=== PATIENT | female | born 1970 | race Caucasian/White ===

== ENCOUNTER 2019-08-17 07:00 | Outpatient (CLI) | payer OTHER, SELFPAY ==
[2019-08-17 11:40] LABS: ALT 49 U/L (14-59); AST 17 U/L (15-37); Albumin 3.7 g/dL (3.4-5.0); Alkaline Phosphatase 111 U/L (46-116); Anion Gap 11.9 mmol/L (3-11); BUN 35 mg/dL (7-18); Bilirubin, Total 0.4 mg/dL (0.2-1.0); CO2 26.1 mmol/L (21.0-32.0); Calculated LDL 135 mg/dL; Chloride 103 mmol/L (98-107); Cholesterol 201 mg/dL (50-200); Estimated GFR 47.75 (mL/min/1.73m2); Glucose 104 mg/dL (70-100); HDL Cholesterol 43 mg/dL (40-60); Potassium 4.6 mmol/L (3.5-5.1); Sodium 141 mmol/L (136-145); TSH 5.71 uIU/mL (0.36-3.74); Total Protein 7.6 g/dL (6.4-8.2); Triglyceride 115 mg/dL (30-150)
[2019-08-17 11:46] LABS: Hemoglobin A1C 5.4 % (4.5-6.2)
[2019-08-17 11:57] LABS: ESR 37 mm/hr (0-20)
[2019-08-17 12:07] LABS: FREE T4 1.09 ng/dL (0.76-1.46)
[2019-08-18 10:03] LABS: Rheumatoid Factor 8 IU/mL (<12.5)
== END 2019-08-17 07:20 ==
PROVIDERS: PCP Nurse Practitioner Family; Visit Provider Nurse Practitioner Family
DX: E03.9 Hypothyroidism, unspecified (principal); E78.5 Hyperlipidemia, unspecified
CPT/HCPCS: 36415; 80053; 80061; 85652; 83036; 84439; 84443; 86431

== ENCOUNTER 2019-08-23 06:49 | Outpatient (CLI) | payer OTHER, SELFPAY ==
[2019-08-23 13:23] LABS: Bilirubin Negative (Negative); Blood Negative (Negative); Clarity Clear (Clear); Glucose Negative (Negative); Ketones Negative (Negative); Leukocyte Esterase Negative (Negative); Nitrite Negative (Negative); Specific Gravity 1.015 (1.005-1.025); Urobilinogen 0.2 EU/dL (Up TO 0.2)
[2019-08-23 13:50] LABS: COMMENT (LAB VIEW ONLY) 104.81 mg/dL; Microalb ug/mg Crea 8.5 ug/mg Cr
[2019-08-23 14:02] LABS: Anion Gap 9.2 mmol/L (3-11); BUN 20 mg/dL (7-18); CO2 28.8 mmol/L (21.0-32.0); CREATININE 1.01 mg/dL (0.55-1.02); Chloride 103 mmol/L (98-107); Estimated GFR 58.26 (mL/min/1.73m2); Glucose 103 mg/dL (70-100); Potassium 4.8 mmol/L (3.5-5.1); Sodium 141 mmol/L (136-145)
== END 2019-08-23 07:09 ==
PROVIDERS: PCP Nurse Practitioner Family; Visit Provider Nurse Practitioner Family
DX: I10 Essential (primary) hypertension (principal)
CPT/HCPCS: 36415; 80048; 81003; 82043; 82570

== ENCOUNTER 2020-02-26 17:33 | Emergency (ER) | payer OTHER, SELFPAY ==
[2020-02-26 17:28] VITALS: BP 142/71; PULSE 105; RESP 22; TEMP 37; O2SAT 93
--- NOTE | 2020-02-26 17:30 | DI.RAD_ITS ---
EXAM: XR KNEE LT 4V AP,LAT,SHANNON,PAT and XR tib/fib left CLINICAL HISTORY: fall, lateral pain. TECHNIQUE: 2D digital imaging was performed. COMPARISON: No previous for comparison. FINDINGS: BONES: There is a comminuted depressed lateral tibial plateau fracture. No other fracture is identi fied. JOINTS: There are mild degenerative changes seen about the knee particularly the patellofemoral joint . There is a joint effusion present. SOFT TISSUE: Normal. IMPRESSION: Comminuted depressed lateral tibial plateau fracture. DATA REPOSITORY: RADIATION DOSE DELIVERED:
--- NOTE | 2020-02-26 17:31 | W.ED.GENAD ---
Discharge Plan Disposition Patient Disposition: HOME Condition: Fair Discharge Details Chief Complaint: Orthopedic Clinical Impression: Fracture, tibial plateau Primary Care Provider: Germania Hodge ED Provider: Dorina Ji Home Meds and New Rx's Prescriptions: New oxycodone 5 mg tablet 5 mg PO Q6H PRN (Reason: pain) Qty: 7 RF: 0 Continued black cohosh 20 mg tablet 20 mg PO DAILY RF: 0 multivitamin tablet 1 tab PO DAILY RF: 0 furosemide 40 mg tablet 60 mg PO DAILY Qty: 145 RF: 4 lisinopril 30 mg tablet 30 mg PO DAILY Qty: 90 RF: 4 levothyroxine 150 mcg tablet 150 mcg PO DAILY Qty: 90 RF: 4 paroxetine HCl 30 mg tablet 30 mg PO DAILY Qty: 90 RF: 4 Discharge Instructions Instructions: Oxycodone, Rapid Release (By mouth), Leg Fracture (ED) Additional Instructions: Encourage rest, ice, elevation. Tylenol and/or ibuprofen as needed for discomfort. If this is unsuccessful relieving her discomfort, you may use the oxycodone as prescribed. Please take this medication only as prescribed do not drive will take this medicine. Please call orthopedics tomorrow to schedule follow-up appointment, number listed below. Please use crutches and remain nonweightbearing on that side. If you develop new or worsening symptoms please seek care urgently once again. Stand Alone Forms: Work Release Referrals: Nirav Tian MD [ [facility] STAFF PHYSICIAN] - Medical Decision Making Patient is 49 year old female, brought in via EMS, with c/c of left knee pain. She states that for safety reasons she always goes down stairs backward. Today, she caught her flip flop on the stair and fell. States that she landed on her right knee/hip but endorses left knee pain. She denies history of fx or surgery to this extremity. Denies numbness/tingling. No opening of the skin. She denies other injury at the time of the incident. Did not strike her head, no LOC, CP, SOB, neck or back pain. Patient believes that she pulled the left knee and is endorsing pain along the fibular head radiating inferiorly to mid calf. No posterior pain. Patient has been nonambulatory since the incident. On exam, patient appears uncomfortable. She is notably morbidly obese. She has no outward evidence of trauma. She has 2+ distal pulses and brisk capillary refill. Sensation is intact. Plan for x-ray to evaluate for fracture. Will give Tylenol and ibuprofen for discomfort. XR reviewed by radiologist: FINDINGS: Bones/joints: Abnormal appearing lateral tibial plateau. Underlying fracture is suspected. Consider CT. Soft tissues: Normal. IMPRESSION: Abnormal appearing lateral tibial plateau. Underlying fracture is suspected. Consider CT. FINDINGS: Bones/joints: Lateral tibial plateau fracture suspected, nondisplaced. Confirm with CT if clinically relevant. Soft tissues: Diffuse soft tissue edema. IMPRESSION: Diffuse soft tissue edema. Lateral tibial plateau fracture suspected, nondisplaced. Confirm with CT if clinically relevant. CT reviewed by radiologist FINDINGS: Bones/joints: Acute fracture in the lateral tibial plateau with 6 mm depression of the articular surface. Small to moderate joint effusion with fat fluid level. Soft tissues: Subcutaneous mild soft tissue edema. IMPRESSION: Acute fracture in the lateral tibial plateau with 6 mm depression of the articular surface. Small to moderate joint effusion with fat fluid level. Subcutaneous mild soft tissue edema. Consulted with Dr. Garcia. Will place the patient in a knee immobilizer and have her be nonweightbearing on crutches. Secondary to the patient's body habitus, not having bracing for the patient. Instead, a posterior slab splint will be applied. Double layer will be made given the patient's body habitus. Patient will be given bariatric patches. Attempted to splint the patient, she was unable to tolerate this. Will give IM Dilaudid to help with discomfort to allow for more comfortable splinting. Posterior slab splint was able to be applied. Knee was left in partial flexion. Patient tolerated this well and did have good relief of her discomfort once the splint was in place. Nurses have attempted to ambulate the patient with the bariatric crutches. She was having great difficulty being able to ambulate by herself and get from the bed to a standing position. Much of this seems to be weight-based. I advised admission to be able to work with physical therapy further tomorrow and help with ambulation. I am particularly worried that the patient has 4 steps to be able to get into her house from the outside. Patient is adamant that she wants to go home and be able to care for her daughter. She advised that her son-in-law will be able to help her get into the house. I am concerned for his safety given the patient's body habitus. I did express this concern to the patient. We were able to arrange for EMS assistance at the house to help alleviate some of the load off of her son-in-law. I advised her that if she does have difficulty getting to the house, she should return to the ED for admission rather than but there is risk. Patient was given return precaution. She will call orthopedics tomorrow. Patient will be discharged with #4 oxycodone. Usage instructions was discussed with the patient. We did discuss nonopiate options to help with her discomfort. Encourage rest, ice, elevation. All of her questions and concerns were addressed and she is in agreement with this plan. HPI General Mode of arrival: EMS. Date/Time Provider Initiated Documentation: 02/26/20 17:56. Limitations to Documentation: no limitations. Information obtained by: patient, EMS and RN notes reviewed. History of Present Illness 49 year old F presents to the emergency department with the chief complaint of left knee pain, described as moderate, with intensity rated at 7. Quality is described as aching, and is localized to the left and lower extremity. Patient reports no radiation. Patient started experiencing this minute(s) and it has been constant. Immobilization improves symptom(s), Movement worsens symptoms . Patient notes no other symptoms.. Patient did receive the following treatments prior to arrival, none Related Data Home Medications Medication Instructions Recorded Confirmed black cohosh 20 mg tablet 20 mg PO DAILY 06/15/18 02/26/20 multivitamin 1 tab PO DAILY 06/15/18 02/26/20 furosemide 40 mg tablet 60 mg PO DAILY #145 tab 09/20/19 02/26/20 levothyroxine 150 mcg tablet 150 mcg PO DAILY #90 tab 09/20/19 02/26/20 lisinopril 30 mg tablet 30 mg PO DAILY #90 tab 09/20/19 02/26/20 paroxetine HCl 30 mg tablet 30 mg PO DAILY #90 tab 12/28/19 02/26/20 oxycodone 5 mg PO Q6H PRN #7 tab 02/26/20 Previous Rx's Medication Instructions Recorded furosemide 40 mg tablet 60 mg PO DAILY #145 tab 09/20/19 levothyroxine 150 mcg tablet 150 mcg PO DAILY #90 tab 09/20/19 lisinopril 30 mg tablet 30 mg PO DAILY #90 tab 09/20/19 paroxetine HCl 30 mg tablet 30 mg PO DAILY #90 tab 12/28/19 oxycodone 5 mg PO Q6H PRN #7 tab 02/26/20 Allergies Allergy/AdvReac Type Severity Reaction Status Date / Time No Known Allergies Allergy Unverified 02/26/20 17:31 Review of Systems Constitutional Constitutional: Reports as per HPI, Denies chills, Denies fever(s), Denies headache(s) and Denies weakness ENT Ears, Nose, Mouth, and Throat: Denies headache(s) Cardiovascular Cardiovascular: Reports as per HPI Respiratory Respiratory: Reports as per HPI and Denies cough Musculoskeletal Musculoskeletal: Reports as per HPI and Denies tingling Integumentary/Breasts Skin/Breast: Reports as per HPI, Denies rash and Denies wounds Neurologic Neurologic: Reports as per HPI, Denies headache(s), Denies tingling, Denies paresthesias and Denies weakness [facility] Medical History Anterior uveitis (Resolved) Bilateral in 2005 Essential hypertension (Chronic) Generalized anxiety disorder (Chronic) Hyperlipidemia (Chronic) Hypothyroidism (Chronic) Lichen sclerosus et atrophicus (Inactive) Major depressive disorder (Chronic) Obesity (Chronic) Vitiligo (Chronic) Surgical History History of section (Chronic 08/31/06) S/P dilatation and curettage (Acute 07/31/09) S/P LEEP (Acute ~1995) Status post de Quervain's release surgery (Acute 08/22/08) Left wrist Social History Smoking/Tobacco Use Status: Never Alcohol Intake: current Alcohol Intake frequency: holidays/special occasions only Substance use type: does not use Caregiver/Support person: No Household members: children Communication Needs: None 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 Pets and animals: Yes Pets and animals: cat(s) Sexually active: No Do you think of yourself as: straight/heterosexual Current gender identity: female What is your relationship status?: How often do you talk on the phone with friends or family?: three or more times per week How often do you get together with friends or relatives?: twice per week How often do you attend restorationism or baptist services?: decline to answer Do you belong to any clubs or organized social groups?: no Panel score (0-1 are the most socially isolated patients): 1 What type of physical activity do you participate in: walking Duration: < 15 minutes/day Frequency: daily Enma/Yazdanism: None Special enma needs: No Seatbelt use: always Helmet use: Yes Helmet use: always Drive intox or ride w/intox pizza driver: No Do you feel safe at home: Yes Do you feel safe in your relationship?: Yes Female Reproductive History Menstrual control method: natural family planning History History 3 Para 1 Hx # Term Pregnancies Multiple births Hx # Pregnancies Ectopic pregnancies AB induced Hx Number of Living Children 1 AB spontaneous 2 Exam Const General: cooperative, healthy appearing, uncomfortable, no acute distress, well developed and well groomed Nutritional Appearance: well nourished and obese morbidly obese Orientation: alert and awake Resp Effort & Inspection: normal respiratory effort, able to speak in complete sentences and no respiratory distress Cardio Rate: regular rate Rhythm: regular rhythm Skin General skin exam: no rashes or lesions noted Lesions: no lesions Rashes: no rashes Trauma: no lacerations or abrasions Neuro General: patient alert and patient awake Cognition: normal cognition Speech: speech normal Gait: gait abnormal (nonambulatory since [facility] [place]) Sensory Exam: no sensory deficits noted Extrem Left lower extremity: normal to inspection, normal capillary refill, no joint enlargement and knee Details: normal to inspection and tenderness Location: of the tibial tuberosity and of the lateral joint line; no swelling (difficult to assess secondary to body habitus); abnormal ROM (unable to range knee secondary ot pain) and no edema Psych Appearance: grossly normal and well kempt Mental Status: mental status grossly normal Speech and Movement: speech and movement normal
[2020-02-26] MEDS: Ibuprofen 600 MG TAB PO (17:41)
[2020-02-26] MEDS: Acetaminophen 500 MG TAB 1000 MG PO (17:41)
--- NOTE | 2020-02-26 18:07 | DI.VRAD_ITS ---
PROCEDURE INFORMATION: Exam: XR Left Knee Exam date and time: 02/26/2020 5:50 PM Age: 49 years old Clinical indication: Pain and injury or trauma; Initial encounter; Blunt trauma; Left; Knee and lower leg; Patient HX: Fall, lateral pain TECHNIQUE: Imaging protocol: XR Left knee. Views: 4 or more views. COMPARISON: No relevant prior studies available. FINDINGS: Bones/joints: Abnormal appearing lateral tibial plateau. Underlying fracture is suspected. Consider CT. Soft tissues: Normal. IMPRESSION: Abnormal appearing lateral tibial plateau. Underlying fracture is suspected. Consider CT. Dictated and Authenticated by: Fausto Ervin MD. Ordering:GABRIELLA Cam MD
--- NOTE | 2020-02-26 18:08 | DI.VRAD_ITS ---
PROCEDURE INFORMATION: Exam: XR Left Tibia and Fibula Exam date and time: 02/26/2020 5:59 PM Age: 49 years old Clinical indication: Pain and injury or trauma; Initial encounter; Blunt trauma; Knee and lower leg; Left; Patient HX: Fall, lateral pain TECHNIQUE: Imaging protocol: XR Left tibia and fibula. Views: 2 views. COMPARISON: CR XR KNEE LT 4V AP,LAT,SHANNON,PAT 02/26/2020 5:50 PM FINDINGS: Bones/joints: Lateral tibial plateau fracture suspected, nondisplaced. Confirm with CT if clinically relevant. Soft tissues: Diffuse soft tissue edema. IMPRESSION: Diffuse soft tissue edema. Lateral tibial plateau fracture suspected, nondisplaced. Confirm with CT if clinically relevant. Dictated and Authenticated by: Fausto Ervin MD. Ordering:GABRIELLA Cam MD
--- NOTE | 2020-02-26 18:30 | DI.CT_ITS ---
EXAM: CT LOWER EXTREMITY LT WO CLINICAL HISTORY: concern for tibial plateau fracture. TECHNIQUE: Imaging Protocol: Axial computed tomography images with coronal and sagittal reformatted images were created and reviewed. COMPARISON: No exams were available for comparison FINDINGS: Bones: There is a comminuted lateral tibial plateau fracture. The fracture extends medially to invo lve the lateral tibial spine. There is depression of approximately 8 mm. No other fracture is ident ified. There is a joint effusion present with a fat fluid level. Degenerative changes are seen in t he knee particularly involving the patellofemoral joint. Soft Tissues: Normal. IMPRESSION: Comminuted lateral tibial plateau fracture as described above. RADIATION DOSE DELIVERED: 237.63mGy.cm Total DLP 237.63mGy.cm Total DLP DATA REPOSITORY: All CT scans at this facility are submitted to the National Radiology Data Registry (NRDR) Dose Index Registry (DIR) with the [employer] ([employer]). RADIATION OPTIMIZATION: All CT scans at this facility use at least one of these dose optimization te chniques: automated exposure control; mA and/or kV adjustment per patient size (includes targeted exa ms where dose is matched to clinical indication); or iterative reconstruction.
--- NOTE | 2020-02-26 18:57 | DI.VRAD_ITS ---
PROCEDURE INFORMATION: Exam: CT Left Lower Extremity With Contrast, Knee Exam date and time: 02/26/2020 6:32 PM Age: 49 years old Clinical indication: Pain; Knee; Left; Patient HX: Concern for tibial plateau FX TECHNIQUE: Imaging protocol: CT of the Left lower extremity with intravenous contrast was performed. Exam focused on the knee. COMPARISON: CR XR KNEE LT 4V AP,LAT,SHANNON,PAT 02/26/2020 5:50 PM FINDINGS: Bones/joints: Acute fracture in the lateral tibial plateau with 6 mm depression of the articular surface. Small to moderate joint effusion with fat fluid level. Soft tissues: Subcutaneous mild soft tissue edema. IMPRESSION: Acute fracture in the lateral tibial plateau with 6 mm depression of the articular surface. Small to moderate joint effusion with fat fluid level. Subcutaneous mild soft tissue edema. Dictated and Authenticated by: Fausto Ervin MD. Ordering:GABRIELLA Cam MD
[2020-02-26 19:03] VITALS: BP 136/83; PULSE 95; RESP 18; TEMP 37.1; O2SAT 100
[2020-02-26] MEDS: HYDROmorphone 2 MG/ML VIAL 1 MG IM (19:52)
[2020-02-26 21:23] VITALS: BP 142/71; PULSE 105; RESP 18; TEMP 37.1; O2SAT 100
--- NOTE | 2020-02-26 21:26 | NUR.NOTE ---
Nursing Note: Patient had severe difficulty with mobility. Unable to even stand due to body habitus. Patient insisted upon going home even though PA offered to admit for observation for PT tomm on crutch or walker use. Patient insisted on going home due to having to care for her 13 year old daughter. Patient required extensive assist to get into wheelchair. Unable to understand or use crutches appropriately. Requires to stand by pulling self up on this scribe. Called son in law for help to take home. Son in law parked up to ER entrance with his large SUV. Patient unable to even stand from wheelchair and EMS arrived to assist with getting into vehicle. Patient totally unable to get into the vehicle and required her son in law, 2 EMS and this scribe to physically lift her into the seat. EMS or fire to meet patient at home to assist into home as she has 3-4 steps to get into house. Reminded patient that she could come back should she find she is unable to care for herself at home.
--- NOTE | 2020-02-27 08:13 | NUR.NOTE ---
02/27/2020 @0813 Orthopedic referral faxed to [facility] Nursing Note:
== END 2020-02-26 21:05 | disposition home or self-care (01) ==
LOC: ER 21:06
PROVIDERS: Emergency Provider Physician Assistant; PCP Nurse Practitioner Family
DX: S82.142A Displaced bicondylar fracture of left tibia, initial encounter for closed fracture (principal); W10.8XXA Fall (on) (from) other stairs and steps, initial encounter; E66.01 Morbid (severe) obesity due to excess calories; Z68.44 Body mass index [BMI] 60.0-69.9, adult; I10 Essential (primary) hypertension
CPT/HCPCS: 29505; 96372; 99284; 73564; 73590; 73700; E0114

== ENCOUNTER 2020-02-27 16:02 | Observation (INO) | payer OTHER, SELFPAY ==
[2020-02-27 16:03] VITALS: BP 151/88; PULSE 106; TEMP 36.5; O2SAT 90
[2020-02-27] MEDS: oxyCODONE 5 MG TAB PO ×2 (16:59→23:14)
--- NOTE | 2020-02-27 17:29 | W.ED.GENAD ---
Discharge Plan Disposition Patient Disposition: [facility] INPATIENT Condition: Stable Discharge Details Chief Complaint: Orthopedic Clinical Impression: Closed fracture of left tibial plateau, Inability to ambulate due to left knee Primary Care Provider: Germania Hodge ED Provider: Giorgio Gudino Home Meds and New Rx's Prescriptions: No Action black cohosh 20 mg tablet 20 mg PO DAILY RF: 0 multivitamin tablet 1 tab PO DAILY RF: 0 furosemide 40 mg tablet 60 mg PO DAILY Qty: 145 RF: 4 lisinopril 30 mg tablet 30 mg PO DAILY Qty: 90 RF: 4 levothyroxine 150 mcg tablet 150 mcg PO DAILY Qty: 90 RF: 4 paroxetine HCl 30 mg tablet 30 mg PO DAILY Qty: 90 RF: 4 oxycodone 5 mg tablet 5 mg PO Q6H PRN (Reason: pain) Qty: 7 RF: 0 Medical Decision Making 49-year-old female seen here yesterday and diagnosed with left tibial plateau fracture, returns with pain and inability to perform ADLs. I called and spoke with [facility] [place] on-call orthopedics, Dr. Caro and discussed history and ED presentation, he recommends outpatient follow-up with orthopedics and will be happy to care for patient in the outpatient setting he does not feel emergent transfer warranted. Plan to admit here for assistance with ADLs and pain control. Offered IV analgesia and patient declined. She prefer oral analgesics. I did give oxycodone 5 mg. She has not yet due for ibuprofen and Tylenol as she had this earlier this afternoon. I called and spoke with Dr. Tian will be happy to see the patient in consultation. Patient will likely need re-splinting and he will evaluate since. I called and spoke with on-call hospitalist Dr. Walsh who will admit the patient. HPI General Mode of arrival: ambulatory. Date/Time Provider Initiated Documentation: 02/27/20 16:31. Limitations to Documentation: no limitations. Information obtained by: patient. HPI Narrative: 49-year-old female presents with right knee pain. Patient tripped and fell down 2 steps yesterday. She was seen here in the emergency department and found to have a tibial plateau fracture. It was recommended by treatment team for her to be admitted for assistance with ADLs. Patient provided informed refusal of admission and was discharged home. Unfortunately she is not been doing well at home and was advised by PCP care management to come back to the emergency department for reassessment. Patient is having significant difficulty with ADLs. She cannot ambulate and is having trouble with crutches likely related to her comorbid obesity. Pain is severe. She has been using Tylenol, ibuprofen and oxycodone. Oxycodone does provide some relief but is only temporizing measure. No associated numbness or tingling in the distal lower leg. No other injury. Related Data Home Medications Medication Instructions Recorded Confirmed black cohosh 20 mg tablet 20 mg PO DAILY 06/15/18 02/26/20 multivitamin 1 tab PO DAILY 06/15/18 02/26/20 furosemide 40 mg tablet 60 mg PO DAILY #145 tab 09/20/19 02/26/20 levothyroxine 150 mcg tablet 150 mcg PO DAILY #90 tab 09/20/19 02/26/20 lisinopril 30 mg tablet 30 mg PO DAILY #90 tab 09/20/19 02/26/20 paroxetine HCl 30 mg tablet 30 mg PO DAILY #90 tab 12/28/19 02/26/20 oxycodone 5 mg PO Q6H PRN #7 tab 02/26/20 Previous Rx's Medication Instructions Recorded furosemide 40 mg tablet 60 mg PO DAILY #145 tab 09/20/19 levothyroxine 150 mcg tablet 150 mcg PO DAILY #90 tab 09/20/19 lisinopril 30 mg tablet 30 mg PO DAILY #90 tab 09/20/19 paroxetine HCl 30 mg tablet 30 mg PO DAILY #90 tab 12/28/19 oxycodone 5 mg PO Q6H PRN #7 tab 02/26/20 Allergies Allergy/AdvReac Type Severity Reaction Status Date / Time No Known Allergies Allergy Unverified 02/26/20 17:31 General Stated Complaint: Orthopedic COCO: 3 Review of Systems Cardiovascular Cardiovascular: Denies chest pain and Denies dyspnea Respiratory Respiratory: Denies cough and Denies dyspnea Gastrointestinal Gastrointestinal: Denies abdominal pain Musculoskeletal Musculoskeletal: Reports as per HPI Neurologic Neurologic: Reports as per HPI [facility] Medical History Anterior uveitis (Resolved) Bilateral in 2005 Essential hypertension (Chronic) Generalized anxiety disorder (Chronic) Hyperlipidemia (Chronic) Hypothyroidism (Chronic) Lichen sclerosus et atrophicus (Inactive) Major depressive disorder (Chronic) Obesity (Chronic) Vitiligo (Chronic) Surgical History History of section (Chronic 08/31/06) S/P dilatation and curettage (Acute 07/31/09) S/P LEEP (Acute ~1995) Status post de Quervain's release surgery (Acute 08/22/08) Left wrist Family History Mother , At 39 of breast cancer Breast cancer Father Heart disease Hyperlipidemia Type 2 diabetes mellitus Hypertension Myocardial infarction Sister Hypothyroidism Daughter Type 1 diabetes mellitus Maternal Grandfather , at 50 of [place] Heart disease Myocardial infarction Maternal Grandmother , at 82 Dementia Paternal Grandfather , at 50 of [place] Heart disease Myocardial infarction Paternal Grandmother , at 82 Heart disease Hyperlipidemia Stroke Social History Smoking/Tobacco Use Status: Never Alcohol Intake: current Alcohol Intake frequency: holidays/special occasions only Drug use: Never Substance use type: does not use Caregiver/Support person: No Household members: children Communication Needs: None current occupation: [employer] Pets and animals: Yes Pets and animals: cat(s) Sexually active: No Do you think of yourself as: straight/heterosexual Current gender identity: female What is your relationship status?: How often do you talk on the phone with friends or family?: three or more times per week How often do you get together with friends or relatives?: twice per week How often do you attend jainism or catholic services?: decline to answer Do you belong to any clubs or organized social groups?: no Panel score (0-1 are the most socially isolated patients): 1 What type of physical activity do you participate in: walking Duration: < 15 minutes/day Frequency: daily Enma/Hindu: None Special enma needs: No Seatbelt use: always Helmet use: Yes Helmet use: always 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 Do you feel safe at home: Yes Do you feel safe in your relationship?: Yes Female Reproductive History Menstrual control method: natural family planning History History 3 Para 1 Hx # Term Pregnancies Multiple births Hx # Pregnancies Ectopic pregnancies AB induced Hx Number of Living Children 1 AB spontaneous 2 Exam Const General: cooperative and uncomfortable Nutritional Appearance: obese HENNJ Mouth: moist mucous membranes Resp Auscultation: clear to auscultation bilaterally, no rales, no rhonchi and no wheezes Cardio Rate: regular rate and not tachycardic Rhythm: regular rhythm Pulses: dorsalis pedis present on the left 1+ GI Palpation: soft, not firm, no guarding, no masses, not rigid and nontender Neuro General: patient alert, patient awake and tone normal Extrem General: no edema Left lower extremity: knee Details: tenderness, swelling and abnormal ROM (Posterior splint in place), lower leg (Compartments soft) and foot (Sensation intact, motor intact) Course Vital Signs Vital signs: Vital Signs Temperature 36.5 C 02/27/20 16:03 Pulse 106 H 02/27/20 16:03 Blood Pressure 151/88 H 02/27/20 16:03 Pulse Oximetry 90 L 02/27/20 16:03 Temperature 36.5 C 02/27/20 16:03 Temperature Source Temporal Artery Scan 02/27/20 16:03 Pulse 106 H 02/27/20 16:03 Respiratory Effort Non-Labored 02/27/20 17:21 Blood Pressure 151/88 H 02/27/20 16:03 Blood Pressure Position Sitting 02/27/20 16:03 Pulse Oximetry 90 L 02/27/20 16:03 Oxygen Delivery Method Room Air 02/27/20 16:03 Oxygen Flow Rate 0 02/27/20 16:03 Pain Level 6 02/27/20 16:03 Lab/Test Results Lab/Test Results: Laboratory Tests Range/Units 02/27/20 18:31 Troponin I Cancelled
--- NOTE | 2020-02-27 18:28 | HPE_ITS ---
Date of service: 02/27/20 Time of Service: 18:28 Assessment and Plan Assessment and plan (1) Fracture, tibial plateau: Start date: 02/26/20 Status: Acute Assessment and plan: This is a 49-year-old lady with acute fracture of her left tibial plateau who cannot care for herself at home secondary to her morbid obesity and ambulatory difficulties with her left knee in a posterior splint. She will be admitted for observation and needs a more practical plan for home care until she can have her outpatient surgery. She will also need a plan for postoperative care. Qualifiers: Encounter type: initial encounter Fracture type: closed Laterality: left Qualified Code(s): S82.142A - Displaced bicondylar fracture of left tibia, initial encounter for closed fracture (2) Inability to ambulate due to left knee: Start date: 02/27/20 Status: Acute Assessment and plan: Physical therapy and occupational therapy can be consulted in the morning. She had difficulty using crutches at home because of upper extremity weakness with her weight. (3) Obesity: Status: Chronic Assessment and plan: This is a comorbid problem which will make ambulation with crutches difficult. This is also the reason she cannot have the surgery locally because of increased risk of complications. I will place her on heparin subcutaneously for DVT prophylaxis. Qualifiers: Body mass index: BMI 50.0-59.9 Obesity classification: adult class 3 (BMI >= 40) Obesity type: due to excess calories Serious obesity comorbidity presence: with serious comorbidity Qualified Code(s): E66.01 - Morbid (severe) obesity due to excess calories; Z68.43 - Body mass index (BMI) 50.0-59.9, adult (4) Hypothyroidism: Status: Chronic Assessment and plan: TSH was slightly elevated but we need to review outpatient records as to adjustment needed this having been a problem in the rec ent past with labs trends reviewed. Qualifiers: Hypothyroidism type: acquired Qualified Code(s): E03.9 - Hypothyroidism, unspecified History of Present Illness History of Present Illness Chief Complaint: Fall with fracture to left knee, tibial plateau Narrative: This is a 49-year-old who works for a local [employer] and has a 13-year-old daughter at home, who tripped on her step falling onto her left knee striking the corner of a concrete pad with acute fracture to the tibial plateau of the left knee on 02/26/2020. She was seen in ED and diagnosed as acute comminuted fracture of her tibial plateau with a splint applied and sent home for outpatient treatment of this fracture once the swelling had reduced. She was unable to walk with crutches and was already having problems with ambulation prior to this fall secondary to obesity and weakness in her upper arms, not allowing the use of crutches with her weight over 190 kg. At home she was not able to take care of herself or safely ambulate with no appropriate caregiver at home living alone with a teenage daughter. She is comfortable with ibuprofen, Tylenol and oxycodone 5 mg when at complete rest with her leg elevated. Because of her inability to take care of herself and having no appropriate assistance at home, she returned to the ED for evaluation and conversation was had with orthopedist at [facility] since she cannot have her surgery locally secondary to her weight. The orthopedist at [facility] stated that this was an outpatient surgery and they would be happy to take care of her as an outpatient in the future. The local orthopedist will be seeing the patient for splinting and she will be admitted for observation with Physical Therapy, Occupational Therapy and a better plan for home care until she can proceed with outpatient surgery. Her chronic medical problems have been stable except for her increasing weight. She has hypothyroidism and has an elevated TSH with adjustment of her thyroid medicine to be performed by her PCP with TSH fluctuating recently and not severely elevated. She also is on Lasix with slightly elevated creatinine inte rmittently which appears to be stable. She denies any presyncopal symptoms and simply tripped when she fell and fractured her knee. She had no focal neurological complaints but does have some problems with depression. She was slightly agitated when I first approached her for review of her history and appears under increased stress having recently lost her and living alone with her teenage daughter. Review of Systems Narrative: 13 point review of systems otherwise unrevealing or stable. [facility] Medical History Anterior uveitis (Resolved) Bilateral in 2005 Essential hypertension (Chronic) Generalized anxiety disorder (Chronic) Hyperlipidemia (Chronic) Hypothyroidism (Chronic) Lichen sclerosus et atrophicus (Inactive) Major depressive disorder (Chronic) Obesity (Chronic) Vitiligo (Chronic) Surgical History History of section (Chronic 08/31/06) S/P dilatation and curettage (Acute 07/31/09) S/P LEEP (Acute ~1995) Status post de Quervain's release surgery (Acute 08/22/08) Left wrist Family History Mother , At 39 of breast cancer Breast cancer Father Heart disease Hyperlipidemia Type 2 diabetes mellitus Hypertension Myocardial infarction Sister Hypothyroidism Daughter Type 1 diabetes mellitus Maternal Grandfather , at 50 of [place] Heart disease Myocardial infarction Maternal Grandmother , at 82 Dementia Paternal Grandfather , at 50 of [place] Heart disease Myocardial infarction Paternal Grandmother , at 82 Heart disease Hyperlipidemia Stroke Social History Smoking/Tobacco Use Status: Never Alcohol Intake: current Alcohol Intake frequency: holidays/special occasions only Drug use: Never Substance use type: does not use Caregiver/Support person: No Household members: children Communication Needs: None 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 Pets and animals: Yes Pets and animals: cat(s) Sexually active: No Do you think of yourself as: straight/heterosexual Current gender identity: female What is your relationship status?: How often do you talk on the phone with friends or family?: three or more times per week How often do you get together with friends or relatives?: twice per week How often do you attend yazdanism or quaker services?: decline to answer Do you belong to any clubs or organized social groups?: no Panel score (0-1 are the most socially isolated patients): 1 What type of physical activity do you participate in: walking Duration: < 15 minutes/day Frequency: daily Enma/Spiritism: None Special enma needs: No Seatbelt use: always Helmet use: Yes Helmet use: always 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 Do you feel safe at home: Yes Do you feel safe in your relationship?: Yes Female Reproductive History Menstrual control method: natural family planning History History 3 Para 1 Hx # Term Pregnancies Multiple births Hx # Pregnancies Ectopic pregnancies AB induced Hx Number of Living Children 1 AB spontaneous 2 Meds Home Medications and Allergies Home Medications Medication Instructions Recorded Confirmed Type black cohosh 20 mg tablet 20 mg PO DAILY 09/05/18 05/19/20 History multivitamin 1 tab PO DAILY 06/15/18 02/27/20 History furosemide 40 mg tablet 60 mg PO DAILY #145 tab 09/20/19 02/27/20 Rx levothyroxine 150 mcg tablet 150 mcg PO DAILY #90 tab 09/20/19 02/27/20 Rx lisinopril 30 mg tablet 30 mg PO DAILY #90 tab 09/20/19 02/27/20 Rx paroxetine HCl 30 mg tablet 30 mg PO DAILY #90 tab 12/28/19 02/27/20 Rx oxycodone 5 mg PO Q6H PRN #7 tab 02/26/20 02/27/20 Rx Allergies Allergy/AdvReac Type Severity Reaction Status Date / Time No Known Allergies Allergy Unverified 02/26/20 17:31 Exam Narrative Exam Narrative: General: Patient is in no acute distress in bed with her knee elevated and ice over the anterior aspect. She alert and oriented x3. She is morbidly obese especially over her lower abdomen and thighs. HEENT: Normocephalic, eyes with pupils equal and reactive to light s ymmetrically, extraocular movement intact and sclera anicteric. Oropharynx was moist mucosa. Neck: Supple without JVD. Back: Normal posture without CVA tenderness. Lungs: Clear to auscultation and percussion with no focalizing rhonchi, rales and no expiratory wheeze. Heart: Regular rate rhythm without murmurs or gallops. Breast: Exam deferred. Abdomen: Obese contour, soft and nontender to palpation without palpable hepatosplenomegaly. Bowel sounds positive in all quadrants. Genitalia/rectal: Exam deferred. Extremity: Without clubbing, cyanosis or pitting edema patient having obese lower extremities and moderate edema over her left knee with no bruising anteriorly, posterior splint behind her leg and knee on the left with tenderness to palpation over the anterior knee with full exam not performed being splinted. She has good peripheral pulses and normal capillary refill. Neuro: Cranial nerves II through XII grossly intact, motor and sensory both intact. Psych: Slightly agitated but easily calmed, slightly depressed mood but also was verbal with normal thought processes. Remote and recent memory intact. Results Imaging Imaging Studies: EXAM: CT LOWER EXTREMITY LT WO CLINICAL HISTORY: concern for tibial plateau fracture. TECHNIQUE: Imaging Protocol: Axial computed tomography images with coronal and sagittal reformatted images were created and reviewed. COMPARISON: No exams were available for comparison FINDINGS: Bones: There is a comminuted lateral tibial plateau fracture. The fracture extends medially to involve the lateral tibial spine. There is depression of approximately 8 mm. No other fracture is identified. There is a joint effusion present with a fat fluid level. Degenerative changes are seen in the knee particularly involving the patellofemoral joint. Soft Tissues: Normal. IMPRESSION: Comminuted lateral tibial plateau fracture as described above. RADIATION DOSE DELIVERED: 237.63mGy.cm Total DLP 237.63mGy.cm Total DLP DATA REPOSITORY: All CT scans at this facility are submitted to the National Radiology Data Registry (NRDR) Dose Index Registry (DIR) with the [employer] ([employer]). RADIATION OPTIMIZATION: All CT scans at this facility use at least one of these dose optimization techniques: automated exposure control; mA and/or kV adjustment per patient size (includes targeted exams where dose is matched to clinical indication); or iterative reconstruction. [id number]: Total DLP = 0.00 mGy-cm Ordered By: Dorina Ji CC: Dictated By: Eddie Rasheed M.D. 02/27/20 0857 EXAM: XR KNEE LT 4V AP,LAT,SHANNON,PAT and XR tib/fib left CLINICAL HISTORY: fall, lateral pain. TECHNIQUE: 2D digital imaging was performed. COMPARISON: No previous for comparison. FINDINGS: BONES: There is a comminuted depressed lateral tibial plateau fracture. No other fracture is identified. JOINTS: There are mild degenerative changes seen about the knee particularly the patellofemoral joint. There is a joint effusion present. SOFT TISSUE: Normal. IMPRESSION: Comminuted depressed lateral tibial plateau fracture. DATA REPOSITORY: RADIATION DOSE DELIVERED: Ordered By: Dorina Ji CC: Dictated By: Eddie Rasheed M.D. 02/27/20 0854 Labs Result diagrams: 02/27/20 19:00 02/27/20 19:00 Labs: Laboratory Results - last 24 hr 02/27/20 18:31 Troponin I Cancelled Last Vital Signs Temp 36.5 C 02/27/20 16:03 Pulse 106 H 02/27/20 16:03 BP 151/88 H 02/27/20 16:03 Pulse Ox 90 L 02/27/20 16:03 COVID-19 Screening In the past 14 days, have you traveled outside of [place] or [place]?: NO Had IN PERSON contact w/suspected or confirmed C-19 person: No
[2020-02-27 18:36] VITALS: BP 122/74
[2020-02-27 18:56] VITALS: BP 125/76; PULSE 104; RESP 22; TEMP 37.4; O2SAT 93
[2020-02-27 19:21] LABS: HCT 38.7 % (36.0-46.0); HGB 12.2 g/dL (12.0-15.5); Mean Corp. HGB Concentration 31.5 g/dL (32.0-36.0); Mean Corpuscular Hemoglobin 28.2 pg (27.0-33.0); Mean Corpuscular Volume 89.6 fL (80-95); Mean Platelet Volume 9.5 fL (8.0-11.0); Platelet Count 231 x1000/uL (130-400); RBC 4.32 m/cumm (4.00-5.20); RBC Distribution Width 15.6 % (11.7-14.6); White Blood Cell Count 10.34 k/cumm (4.4-10.8)
[2020-02-27 19:45] LABS: ALT 23 U/L (14-59); AST 16 U/L (15-37); Albumin 3.6 g/dL (3.4-5.0); Alkaline Phosphatase 105 U/L (46-116); BUN 19 mg/dL (7-18); CREATININE 1.05 mg/dL (0.55-1.02); Calcium 9.1 mg/dL (8.5-10.1); Chloride 103 mmol/L (98-107); Estimated GFR 55.48 (mL/min/1.73m2); Glucose 104 mg/dL (74-106); Potassium 3.9 mmol/L (3.5-5.1); Sodium 140 mmol/L (136-145); TSH 6.81 uIU/mL (0.36-3.74); Total Protein 7.9 g/dL (6.4-8.2)
[2020-02-27] MEDS: Acetaminophen 325 MG TAB PO ×2 (20:10→23:57)
[2020-02-27] MEDS: Heparin 5,000 UNITS/ML VIAL 5000 UNITS SC (21:14)
[2020-02-27] MEDS: Normal Saline Flush 10 ML SYR IVP (21:14)
[2020-02-27 23:54] VITALS: BP 122/79; PULSE 101; RESP 22; TEMP 37; O2SAT 92
[2020-02-28] MEDS: Heparin 5,000 UNITS/ML VIAL 5000 UNITS SC ×2 (05:44→14:48)
[2020-02-28] MEDS: Levothyroxine 75 MCG TAB (05:56)
[2020-02-28 06:29] VITALS: BP 112/67; PULSE 72; RESP 18; TEMP 37.7; O2SAT 97
[2020-02-28 06:43] VITALS: TEMP 37.4
[2020-02-28] MEDS: oxyCODONE 5 MG TAB PO ×2 (07:31→14:48)
[2020-02-28] MEDS: Acetaminophen 325 MG TAB PO ×2 (07:32→14:49)
[2020-02-28 07:46] VITALS: TEMP 37.4
[2020-02-28] MEDS: Multivitamin TAB 1 TAB PO (09:05)
[2020-02-28] MEDS: PARoxetine 20 MG TAB 30 MG PO (09:05)
[2020-02-28] MEDS: Furosemide 40 MG TAB 60 MG PO (09:05)
[2020-02-28] MEDS: Lisinopril 20 MG TAB 30 MG PO (09:05)
--- NOTE | 2020-02-28 09:23 | DSE_ITS ---
Date of service: 02/28/20 Time of Service: 09:23 DS: Diagnosis Discharge Diagnosis (1) Fracture, tibial plateau: Status: Acute (2) Inability to ambulate due to left knee: Status: Acute (3) Obesity: Status: Chronic (4) Hypothyroidism: Status: Chronic Discharge Plan Disposition Patient Disposition: [facility] Condition: Stable Discharge Details Chief Complaint: Orthopedic Clinical Impression: Closed fracture of left tibial plateau, Inability to ambulate due to left knee Reason For Visit: LEFT TIBIAL PLATEAU FRACTUE WITH UNCONTROLLED PAIN Admit Date/Time: 02/27/20 17:44 Admit Provider: Bonilla Walsh Attending Provider: Bonilla Walsh Primary Care Provider: Germania Hodge ED Provider: Giorgio Gudino Hospital Course Hospital Course: This is a 49-year-old female with recent left tibial plateau fracture who returns to the ED after being unable to care for herself at home. She tripped and fell down 2 steps the day prior and was seen here in the emergency depa rtment and found to have a tibial plateau fracture. It was recommended by treatment team at that time to be admitted for assistance with ADLs. She provided informed refusal of admission and was discharged home. Unfortunately she is not been doing well at home and was advised by PCP care management to come back to the emergency department for reassessment. Patient is having significant difficulty with ADLs. She cannot ambulate and is having trouble with crutches likely related to her comorbid obesity. Pain has been severe. She has been using Tylenol, ibuprofen and oxycodone. Her case was discussed with orthopedics but surgical repair not feasible here as anesthesia risk d/t super morbid obesity. Her case was discussed with [facility] who is equipped to care for bariatric patient and has accepted her in transfer. She was accepted by Dr Kevin and will be transported by ground EMS. Home Meds and New Rx's Prescriptions: Continued black cohosh 20 mg tablet 20 mg PO DAILY RF: 0 multivitamin tablet 1 tab PO DAILY RF: 0 furosemide 40 mg tablet 60 mg PO DAILY Qty: 145 RF: 4 lisinopril 30 mg tablet 30 mg PO DAILY Qty: 90 RF: 4 levothyroxine 150 mcg tablet 150 mcg PO DAILY Qty: 90 RF: 4 paroxetine HCl 30 mg tablet 30 mg PO DAILY Qty: 90 RF: 4 oxycodone 5 mg tablet 5 mg PO Q6H PRN (Reason: pain) Qty: 7 RF: 0 Discharge Instructions Instructions: Leg Fracture (DC) Referrals: Carly Shepard [ [facility] STAFF PHYSICIAN] - (accepting provider at [facility]) Activity:: non weight bearing left Equipment/Supplies:: knee immobilizer Diet:: As Tolerated Discharge Orders Discharge Orders: Discharge Order (Routine); Ordered 02/28/20 Ordered By: Chelsey Brown Discharge Data Discharge Date/Time-TO BE ENTERED AT DEPARTURE: 02/28/20 16:40 DS: Summary Status at Discharge Functional status at discharge: bed bound Overall status at discharge: patient is not back to baseline Mental Status: mental status grossly normal Speech and Movement: speech and movement normal Mood: congruent mood Affect: normal affect Exam Const General: cooperative, comfortable and no acute distress Nutritional Appearance: obese Orientation: alert, awake and oriented x3 HENMT Head: normal to inspection, normocephalic and atraumatic Mouth: oral mucosae normal Resp Effort & Inspection: normal respiratory effort Auscultation: clear to auscultation bilaterally Cardio Rate: regular rate Rhythm: regular rhythm GI Inspection: normal to inspection and obesity Palpation: soft Auscultation: normal bowel sounds Skin General skin exam: no rashes or lesions noted Neuro General: patient alert, patient awake and patient oriented x3 Cranial Nerves: CN's II-XI intact bilaterally Cognition: normal cognition Speech: speech normal Motor: muscle tone normal throughout Extrem Left lower extremity: edema; abnormal to inspection (knee immobilizer intact) and abnormal ROM Psych Appearance: grossly normal Mental Status: mental status grossly normal Speech and Movement: speech and movement normal Mood: congruent mood Affect: normal affect Attitude: cooperative Thought Process: normal Thought Content: normal Insight: insight good Judgment: judgment good DS: Data Vitals/I&O Vitals and I&O: Vital Signs Temperature 37.4 C 02/28/20 07:46 Temperature Source Temporal Artery Scan 02/28/20 07:46 Pulse 72 02/28/20 06:29 Pulse Rhythm Regular 02/28/20 02:42 Respiratory Rate 18 02/28/20 06:29 Respiratory Effort Non-Labored 02/28/20 02:42 Respiratory Depth Normal 02/28/20 02:42 Respiratory Pattern Normal 02/28/20 02:42 Blood Pressure 112/67 02/28/20 06:29 Blood Pressure Mean 90 02/27/20 18:36 Blood Pressure Position Sitting 02/27/20 18:36 Pulse Oximetry 97 02/28/20 06:29 Oxygen Delivery Method Room Air 02/28/20 06:29 Oxygen Flow Rate 0 02/28/20 06:29 Pain Level 0 02/28/20 08:31 Intake & Output 02/27/20 02/27/20 02/28/20 11:59 23:59 11:59 Intake Total 160 / 160 Output Total 200 / 200 Balance 160 / 160 -200 / -200 Weight 191 kg Intake: IV Oral 150 / 150 Output: Urine 200 / 200 Other: Urine Color Yellow Urine Appearance Clear Urine Odor Normal Stool Size Large Stool Characteristics Soft Formed Voiding Methods Bedside Commode Data Completed and Pending Labs on day of discharge: Labs from last 24 hours 02/27/20 02/27/20 02/27/20 19:00 19:00 18:50 WBC 10.34 RBC 4.32 Hgb 12.2 Hct 38.7 MCV 89.6 MCH 28.2 MCHC 31.5 L RDW 15.6 H Plt Count 231 MPV 9.5 Sodium 140 Potassium 3.9 Chloride 103 Carbon Dioxide 30.0 Anion Gap 7.0 BUN 19 H Creatinine 1.05 H Estimated GFR/1.73 m2 55.48 Glucose 104 Calcium 9.1 Total Bilirubin 1.0 AST 16 ALT 23 Alkaline Phosphatase 105 Troponin I Total Protein 7.9 Albumin 3.6 TSH 6.81 H COVID-19 PCR Pending Nasopharyn COVID-19 PCR Pending Ref Test Perform Site Pending 02/27/20 18:31 WBC RBC Hgb Hct MCV MCH MCHC RDW Plt Count MPV Sodium Potassium Chloride Carbon Dioxide Anion Gap BUN Creatinine Estimated GFR/1.73 m2 Glucose Calcium Total Bilirubin AST ALT Alkaline Phosphatase Troponin I Cancelled Total Protein Albumin TSH COVID-19 PCR Nasopharyn COVID-19 PCR Ref Test Perform Site [facility] Medical History Anterior uveitis (Resolved) Bilateral in 2005 Essential hypertension (Chronic) Generalized anxiety disorder (Chronic) Hyperlipidemia (Chronic) Hypothyroidism (Chronic) Lichen sclerosus et atrophicus (Inactive) Major depressive disorder (Chronic) Obesity (Chronic) Vitiligo (Chronic) Surgical History History of section (Chronic 08/31/06) S/P dilatation and curettage (Acute 07/31/09) S/P LEEP (Acute ~1995) Status post de Quervain's release surgery (Acute 08/22/08) Left wrist Family History Mother , At 39 of breast cancer Breast cancer Father Heart disease Hyperlipidemia Type 2 diabetes mellitus Hypertension Myocardial infarction Sister Hypothyroidism Daughter Type 1 diabetes mellitus Maternal Grandfather , at 50 of [place] Heart disease Myocardial infarction Maternal Grandmother , at 82 Dementia Paternal Grandfather , at 50 of [place] Heart disease Myocardial infarction Paternal Grandmother , at 82 Heart disease Hyperlipidemia Stroke Social History Smoking/Tobacco Use Status: Never Alcohol Intake: current Alcohol Intake frequency: holidays/special occasions only Drug use: Never Substance use type: does not use Caregiver/Support person: No Household members: children Communication Needs: None current occupation: [employer] Pets and animals: Yes Pets and animals: cat(s) Sexually active: No Do you think of yourself as: straight/heterosexual Current gender identity: female What is your relationship status?: How often do you talk on the phone with friends or family?: three or more times per week How often do you get together with friends or relatives?: twice per week How often do you attend sabianist or synagogue services?: decline to answer Do you belong to any clubs or organized social groups?: no Panel score (0-1 are the most socially isolated patients): 1 What type of physical activity do you participate in: walking Duration: < 15 minutes/day Frequency: daily Enma/Roman Catholic: None Special enma needs: No Seatbelt use: always Helmet use: Yes Helmet use: always Drive intox or ride w/intox independent driver: No Do you feel safe at home: Yes Do you feel safe in your relationship?: Yes Female Reproductive History Menstrual control method: natural family planning History History 3 Para 1 Hx # Term Pregnancies Multiple births Hx # Pregnancies Ectopic pregnancies AB induced Hx Number of Living Children 1 AB spontaneous 2
--- NOTE | 2020-02-28 09:43 | OCONE_ITS ---
Date of service: 02/28/20 Time of Service: 07:03 History of Present Illness History of Present Illness Chief Complaint: Left tibial plateau fracture Narrative: Kitty is a 49-year-old who tripped over her flip-flops coming down the stairs 3 days ago. She landed awkwardly onto the left leg. She was unable to ambulate. She presented to the emergency department and was diagnosed with a tibial plateau fracture. There was concern at the time, given her morbid obesity and generalized weakness and frequent falls, and that she would not do well at home. However, she wanted to get home to take care of her 13-year-old daughter and therefore was discharged with crutches. Unfortunately, she did have difficulties at home with all activities of daily living. Therefore, she called EMS and was brought back to the emergency department yesterday due to pain and inability to perform basic hygiene and ADLs. She reports pain about the left knee. The splint that she had placed is starting to unravel and slipped distally. She denies numbness or tingling. She denies previous preinjury pain with the left knee. Prior to this she was ambulatory without the use of an assistive device although she does report generalized deconditioning a nd continued weight gain. Consults Consult date: 02/27/20 Requesting physician: Bonilla Walsh Consult Reason Left tibial plateau fracture Assessment and Plan Assessment and plan (1) Closed fracture of left tibial plateau: Status: Acute Assessment and plan: Kitty is a 49-year-old female who suffered a fall and a Schatzker 2 tibial plateau fracture of the left knee. She is morbidly obese with a current weight of 191 kg and a BMI of 66.1. Her habitus complicates the management of this problem. This is a Schatzker 2 involving both depression and a split of the proximal tibia. The depression is greater than 1 cm and given her young age I would recommend improving this. Nonoperative treatment could be considered. However, it will likely be fraught with instability or at least some pseudo-instability due to the defect and advanced progression of deformity and arthritis. The surgery itself is not particularly technically challenging, however, her habitus will make that quite difficult. Given hospital policies and restrictions on equipment and assistance, this is not possible here at [facility]. She understands this completely and therefore [facility] has been contacted to discuss fixation of her tibial plateau fracture. In the interim, I placed her into a new splint for the left knee. I utilized 2 knee immobilizers to support the knee more fully. She reported immediate improvement with her pain. I also think we should continue to work with physical therapy on training for transfers to allow more independent mobility and the potential for her to discharge to home. I discussed the case with care management and asked him to go ahead and start looking into durable medical equipment to be used at home. She will be limited weightbearing for at least 3 months. I would recommend Lovenox for DVT prophylaxis. Continue with physical therapy. Anticipate transfer to [facility] for more definitive surgical management. Qualifiers: Encounter type: initial encounter Qualified Code(s): S82.142A - Displaced bicondylar fracture of left tibia, initial encounter for closed fracture Review of Systems All systems reviewed & are unremarkable except as noted in HPI and below [facility] Medical History Anterior uveitis (Resolved) Bilateral in 2005 Essential hypertension (Chronic) Generalized anxiety disorder (Chronic) Hyperlipidemia (Chronic) Hypothyroidism (Chronic) Lichen sclerosus et atrophicus (Inactive) Major depressive disorder (Chronic) Obesity (Chronic) Vitiligo (Chronic) Surgical History History of section (Chronic 08/31/06) S/P dilatation and curettage (Acute 07/31/09) S/P LEEP (Acute ~1995) Status post de Quervain's release surgery (Acute 08/22/08) Left wrist Family History Mother , At 39 of breast cancer Breast cancer Father Heart disease Hyperlipidemia Type 2 diabetes mellitus Hypertension Myocardial infarction Sister Hypothyroidism Daughter Type 1 diabetes mellitus Maternal Grandfather , at 50 of [place] Heart disease Myocardial infarction Maternal Grandmother , at 82 Dementia Paternal Grandfather , at 50 of [place] Heart disease Myocardial infarction Paternal Grandmother , at 82 Heart disease Hyperlipidemia Stroke Social History Smoking/Tobacco Use Status: Never Alcohol Intake: current Alcohol Intake frequency: holidays/special occasions only Drug use: Never Substance use type: does not use Caregiver/Support person: No Household members: children Communication Needs: None 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 Pets and animals: Yes Pets and animals: cat(s) Sexually active: No Do you think of yourself as: straight/heterosexual Current gender identity: female What is your relationship status?: How often do you talk on the phone with friends or family?: three or more times per week How often do you get together with friends or relatives?: twice per week How often do you attend anabaptism or christian services?: decline to answer Do you belong to any clubs or organized social groups?: no Panel score (0-1 are the most socially isolated patients): 1 What type of physical activity do you participate in: walking Duration: < 15 minutes/day Frequency: daily Enma/Scientologist: None Special enma needs: No Seatbelt use: always Helmet use: Yes Helmet use: always Drive intox or ride w/intox star route mail driver: No Do you feel safe at home: Yes Do you feel safe in your relationship?: Yes Female Reproductive History Menstrual control method: natural family planning History History 3 Para 1 Hx # Term Pregnancies Multiple births Hx # Pregnancies Ectopic pregnancies AB induced Hx Number of Living Children 1 AB spontaneous 2 Exam Narrative Exam Narrative: Sitting up in the chair. There is a splint on the left leg which has unraveled to the level of the knee. No acute distress. Alert and oriented x3. Head is normocephalic and atraumatic. Breathing comfortably without notable distress. Evaluation of the left leg with the splint removed shows significant adiposity but no ecchymosis. There may be some mild swelling over the anterolateral aspect of the left knee. No skin defects. Notable pain to palpation over the knee, laterally much more than medial. Range of motion was not tested given the known fracture. She was able to demonstrate active dorsiflexion and nilton ntarflexion of the ankle as well as inversion and eversion. Sensation intact light touch over the deep and superficial peroneal nerves and tibial nerve. Palpable DP and PT pulse. Results Last Vital Signs Temp 37.4 C 02/28/20 07:46 Pulse 72 02/28/20 06:29 Resp 18 02/28/20 06:29 BP 112/67 02/28/20 06:29 Pulse Ox 97 02/28/20 06:29 Labs Result diagrams: 02/27/20 19:00 02/27/20 19:00 Labs: Laboratory Results - last 24 hr 02/27/20 02/27/20 02/27/20 18:31 19:00 19:00 WBC 10.34 RBC 4.32 Hgb 12.2 Hct 38.7 MCV 89.6 MCH 28.2 MCHC 31.5 L RDW 15.6 H Plt Count 231 MPV 9.5 Sodium 140 Potassium 3.9 Chloride 103 Carbon Dioxide 30.0 Anion Gap 7.0 BUN 19 H Creatinine 1.05 H Estimated GFR/1.73 m2 55.48 Glucose 104 Calcium 9.1 Total Bilirubin 1.0 AST 16 ALT 23 Alkaline Phosphatase 105 Troponin I Cancelled Total Protein 7.9 Albumin 3.6 TSH 6.81 H Imaging Imaging Studies: Xray of the left knee demonstrates an obvious depression of the lateral tibial plateau with widening of the plateau. CT scan of the left knee identifies the tibial plateau fracture within the lateral compartment. There is articular depression between 12 and 13 mm which involves greater than half of the tibial plateau. The depression is greater anteriorly and posteriorly and there is a split seen at the very far anterior aspect of the lateral tibial plateau making this a Schatzker 2.
--- NOTE | 2020-02-28 09:58 | NUR.NOTE ---
Nursing Note: Patient has asked if their is a notary available at the facility, as she stated she is need of one, I am unsure, and pass this on to the CCC, she is in a meeting, and will await her answer
[2020-02-28 11:20] VITALS: BP 126/77; PULSE 101; RESP 22; TEMP 37.4; O2SAT 96
--- NOTE | 2020-02-28 11:43 | PT.INIE ---
Date of service: 02/28/20 Time of Service: 10:43 PT Notes Visit Reasons: LEFT TIBIAL PLATEAU FRACTUE WITH UNCONTROLLED PAIN Physical Therapy Inpatient Initial Evaluation Date: 02/28/2020 Referring Doctor: Bonilla Walsh MD PT Orders: PT CONSULT: Limited ability. Evaluate for safe assisted ambulation with a left knee fracture Precautions: Fall. Standard. NWB on L LE. Knee immobilizer on at all times. Patient Profile/Admitting Diagnosis: Patient is a 49-year-old female who presented to the ED initially on 02/26/2020 due to a fall tripping on her flip-flop while she was negotiating her bottom steps at home. She sustained a lateral tibial plateau fracture on the left side but declined admission to the hospital and so was sent home with left LE placed in a splint. At home, her pain level became uncontrollable and so she went back on 02/27/2020 to the ED and agreed to be admitted. Referral to physical therapy was made in order to establish safe transfer level while awaiting direct transfer to [facility] for immediate orthopedic surgery. PMHX: Medical History Anterior uveitis (Resolved) Bilateral in 2005 Essential hypertension (Chronic) Generalized anxiety disorder (Chronic) Hyperlipidemia (Chronic) Hypothyroidism (Chronic) Lichen sclerosus et atrophicus (Inactive) Major depressive disorder (Chronic) Obesity (Chronic) Vitiligo (Chronic) Surgical History History of section (Chronic 08/31/06) S/P dilatation and curettage (Acute 07/31/09) S/P LEEP (Acute ~1995) Status post de Quervain's release surgery (Acute 08/22/08) Left wrist Social History/Home Situation: Patient lives with daughter in a private home with 2 ways to get into the house: 1 has 5 steps to enter with both rails and the other set of steps has 4 without rails. Patient was independent with everything prior to admission not requiring any use of assistive ambulatory device nor adaptive equipment. Equipment Owned/DME: None Subjective: Patient is pleasant and cooperative. She understands her weight bearing precaution and has been 100% compliant with it. She is agreeable to looking at safe strategies in performing transfers using the front wheeled walker. She denies dizziness, headache, and chest pain throughout session. She did report 5/10 pain on the left knee. Nurse aware. Objective: General Observation: Knee immobilizer on the left. Morbidly obese. Mental Status: Alert and oriented x4 Pain: 5/10 on the left knee ROM: Right Upper Extremity: Shoulder Flexion WFL. Shoulder abduction WFL. Elbow flexion WFL. Wrist flexion WFL. Opening and closing of hand WFL. Left Upper Extremity: Shoulder Flexion WFL. Shoulder abduction WFL. Elbow flexion WFL. Wrist flexion WFL. Opening and closing of hand WFL. Right Lower Extremity: Hip flexion WFL. Hip abduction WFL. Knee flexion WFL. Ankle dorsiflexion WFL. Ankle plantarflexion WFL. Left Lower Extremity: Hip flexion WFL. Hip abduction WFL. Knee flexion WFL. Ankle dorsiflexion WFL. Ankle plantarflexion WFL. Strength: Right Upper Extremity: Shoulder flexors 5/5. Shoulder abductors 5/5. Elbow flexors 5/5. Elbow extensors 5/5. Plant Quality Manager strong. Left Upper Extremity: Shoulder flexors 5/5. Shoulder abductors 5/5. Elbow flexors 5/5. Elbow extensors 5/5. Plant Quality Manager strong. Right Lower Extremity: Hip flexors 5/5. Hip abductors 5/5. Knee flexors 5/5. Knee extensors 5/5. Ankle dorsiflexors 5/5. Ankle plantarflexors 5/5. Left Lower Extremity:Hip and knee muscles NT. Ankle dorsiflexors 4/5. Ankle plantarflexors 4//5. Sensation: Intact as to pain and pressure on right lower extremities. Bed Mobility/Transfers: Sit to stand contact-guard assist requiring minimal verbal cueing for hand placement, needs front wheeled walker for safety Stand to sit contact-guard assist requiring minimal verbal cueing for hand placement, needs front wheeled walker for safety Chair to bedside commode contact-guard assist requiring minimal verbal cueing for hand placement, needs front wheeled walker for safety Bedside commode to chair minimal assist requiring minimal verbal cueing for hand placement, needs front wheeled walker for safety Gait: Not tested. Patient was advised to perform transfers only at this time due to non-weight bearing precaution and morbid obesity. Balance: Static Sitting: Normal Dynamic Sitting: Normal Static Standing: Unable to test due to nonweightbearing on left LE Dynamic Standing: Unable to test due to nonweightbearing on left LE Special Tests: Mobility Limitations Standardized Measure [facility] AM-PAC 6 clicks Basic Mobility Inpatient Short Form: Raw Score: 12 CMS Score: 69% deficit Informed Consent/Education: Patient instructed in purpose of PT consult and plan of care. Assessment: Patient demonstrates active range of motion and strength deficits, need for assistive device for all transfer task, inability to walk, and impairment in balance skills due to lateral tibial plateau fracture on the left side resulting from a fall. Patient is a 49-year-old female who presented to the ED initially on 02/26/2020 due to a fall tripping on her flip-flop while she was negotiating her bottom steps at home. She sustained a lateral tibial plateau fracture on the left side but declined admission to the hospital and so was sent home with left LE placed in a splint. At home, her pain level became uncontrollable and so she went back on 02/27/2020 to the ED and agreed to be admitted. Referral to physical therapy was made in order to establish safe transfer level while awaiting direct transfer to [facility] for immediate orthopedic surgery. Patient presents with clinical signs and symptoms consistent with current/admitting diagnoses that have resulted to mobility limitations, gait instability, generalized weakness, and impairment of motor control as demonstrated by the following impairment level findings: 1. Decreased strength to left LE major muscle groups 2. Impaired standing balance 3. Impaired activity tolerance 4. Limitation of joint range of motion in left LE Impairments are contributing to the following functional limitations: 1. Dependent bed mobility skills 2. Increased dependence with transfers 3. Inability to safely ambulate without assistive device and physical assistance 4. Increase completion time for mobility ADL performance 5. Increased fall risk 6. Inability to negotiate steps alone safely Patient is assessed as a 92648 moderate complexity based on the following: History: Patient is a 51-year-old female with impairment level findings, functional limitations, and past medical history as listed above Examination: Demonstrable impairment in strength, balance, and range of motion with underlying impairments and functional limitations as documented above Presentation:Evolving Decision Makin moderate complexity Goals: N/A. PT evaluation only patient awaiting direct transfer to [facility] for orthopedic surgery. Plan of Care/Treatment Plan: N/A. PT evaluation only patient awaiting direct transfer to [facility] for orthopedic surgery. DISCHARGE RECOMMENDATIONS: N/A. PT evaluation only patient awaiting direct transfer to [facility] for orthopedic surgery. TREATMENT CODE/TIME: 51152 x 32 minutes beginning at 10:43 AM. Thank you very much for this referral. Evie Meredith PT, DPT, CLT [facility] [place], [place]
--- NOTE | 2020-02-28 13:21 | OTIE_ITS ---
Occupational Therapy Notes Inpatient Occupational Therapy Evaluation Date: 02/28/20 Referring Doctor:Bonilla Walsh MD OT Orders: Morbid obesity with upper extremity weakness, fx knee, IADL activity Precautions: Fall, Standard, Full PATIENT PROFILE/ADMITTING DIAGNOSIS: Pt is a 49 year old female who presented to the ER on 02/27/20 after falling down the stairs resulting in a Closed fracture of left tibial plateau, Inability to ambulate due to left knee. The plan is for pt to transition to [facility] for surgical procedure and was admitted to Med Surg for Orthopedic consultation and assessment of ADL/IADL routines. Past Medical History- Medical History Anterior uveitis (Resolved) Bilateral in 2005 Essential hypertension (Chronic) Generalized anxiety disorder (Chronic) Hyperlipidemia (Chronic) Hypothyroidism (Chronic) Lichen sclerosus et atrophicus (Inactive) Major depressive disorder (Chronic) Obesity (Chronic) Vitiligo (Chronic) Surgical History History of section (Chronic 08/31/06) S/P dilatation and curettage (Acute 07/31/09) S/P LEEP (Acute ~1995) Status post de Quervain's release surgery (Acute 08/22/08) Left wrist Social History/Home Situation: Pt lives with her 13 year old daughter. She states that she has a step daughter who has 3 children and is limited to be able to help her if she needs help. At baseline she notes slight difficulty in performing stair and has multiple stairs to enter into their home. She is (I) with community mobility and ADLs. She has a tub shower which OT and pt discuss that use of a shower bench will increase her functional (I) with bathing routine when she does go home. Pt states that she does not feel that she will be able to return home at this time due to her inability to perform her ADLs at her baseline level of function and notes that she is not sure that she will be able to enter her home. Equipment owned/DME: None SUBJECTIVE: Pt was sitting in chair when OT arrived. She states that the plan is for her to be transferred today and she is waiting for a bed at [facility]. She is nervous about what will happen after surgery. OBJECTIVE: General Observation: Pleasant and agreeable to OT consult. Limited functional mobility due to pain, only performing a pivot transfer from bed to commode and bed to chair. Pt has a growth on her back which is open and bleeding. She notes that this has been bothersome to her and would like to have it looked at while she is here. OT notified nursing who came to look at it. Mental Status: A&Ox4 Pain: 10 ROM: RUE AROM WFL L UE AROM WFL STRENGTH: RUE 4/5 throughout LUE 4/5 throughout Pt is (R) hand dominant. SENSATION: Intact FUNCTIONAL MOBILITY/ADLS: Transfers with (A) per nursing- states that this is stand pivot only at this time. BATHING Sitting in chair with max (A) set up and clean up Bathing UE Max (A) back, (I) (B) UE, underarms, abdomen, eileen area in sitting position and chest. Bathing LE Max (A) (B) feet, unable to wash (B) legs due to braces. Pt is not able to perform this. OT and pt discuss use of long handled sponge and performing (B) LE bathing in the seated position. DRESSING in seated postion Dressing UE (I) don and doffing shirt, bra and hospital gown Dressing LE NT GROOMING Sitting in chair with max (A) set up (I) with brushing teeth TOILETING NT EATING Sitting in chair (I) BALANCE: Static sitting Normal Dynamic Sitting Normal Static Standing Fair Dynamic Standing Pivot transfer only SPECIAL TESTS: Daily Activity Limitations Standardized Measure [facility] AM -PAC ?6 clicks? Daily Activity Inpatient Short Form: Raw score: 17 INFORMED CONSENT/EDUCATION: Pt instructed in purpose of OT Consult and plan of care. \-[id number]: Patient is a 49-year-old 4234/ referred to occupational therapy services with diagnosis of falling down the stairs resulting in a Closed fracture of left tibial plateau, Inability to ambulate due to left knee. Patient presents with clinical signs and symptoms consistent with dx, as demonstrated by the following impairment level findings: Increased pain in LE, decreased functional activity tolerance, increased BMI, decreased social supports in home, decreased performance of standing ADLS/IADLS at this time. Impairments are contributing to the following functional limitations: Impairments in ADLs/IADLs and leisure activities, decreased functional activity tolerance, decreased LE dressing, decreased LE bathing, steep stairs to enter home, Unable to perform functional mobility required for ADLs. AMPAC score 17 Patient is assessed as a Moderate 42473 complexity based on the following: History: See above Examination: See functional limitations as noted above Presentation: Evolving Decision Making: AMPAC score 17 GOALS Goals x1 week 1. Dressing with mod (A) and mod (I) pt will be able to don and doff socks and pants 2. Bathing seated position pt will be mod (I) with bathing routine with min vc and use of adaptive equipment. PLAN OF CARE/TREATMENT PLAN: 1x/day, 5 days/ week x 1week Initiate Occupational Therapy Services for bathing, dressing, grooming, toileting, eating, transfer training. DISCHARGE RECOMMENDATIONS Plan is for pt to be transferred to [facility] for surgical procedure at this time. TREATMENT TIME/MINUTES/CODES 85056, [id number], 37 minutes (08:35) Olga Fitzpatrick OTR/[facility]
--- NOTE | 2020-02-28 14:03 | PDOC.CMIN ---
- If Service Date Differs Date of service: 02/28/20 Time of Service: 14:03 Care Management Initial Assess REASON FOR HOSPITALIZATION:: Tibial plateau fracture PAST MEDICAL HISTORY/PAST SURGICAL HISTORY:: Medical History . Anterior uveitis (Resolved). Bilateral in 2005. Essential hypertension (Chronic). Generalized anxiety disorder (Chronic). Hyperlipidemia (Chronic). Hypothyroidism (Chronic). Lichen sclerosus et atrophicus (Inactive). Major depressive disorder (Chronic). Obesity (Chronic). Vitiligo (Chronic). Surgical History . History of section (Chronic 08/31/06). S/P dilatation and curettage (Acute 07/31/09). S/P LEEP (Acute ~1995). Status post de Quervain's release surgery (Acute 08/22/08). Left wrist PREVIOUS FUNCTIONAL STATUS/SOCIAL/FAMILY SUPPORTS:: Kitty cici in a single family home in [facility] with her 13 year old daughter Mallorie. She identifies her sister [place] as a strong support, in addition to her daughter. 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 She does not receive any community services at this time. CURRENT FUNCTIONAL STATUS:: Kitty was sitting up in a chair when CM met with her. She was open and friendly and engaged readily in conversation. Kitty shared the details of the fall which resulted in her leg fracture. Kitty has been accepted at [facility] where she will have surgery when a bed is available. It is unclear whether or not she will need short term rehab after surgery; it will likely depend on how well she does with ambulation and pain management. CM assisted Kitty with having her Last Will and Testament witnessed and notorized. She will retain the original copy. ADVANCE DIRECTIVES:: provided with forms Has patient been provided with information about the portal?: Yes Did the patient sign up for the portal?: Yes CODE STATUS:: Full Code INSURANCE COVERAGE / FINANCIAL ISSUES:: [employer] CURRENT HOME/COMMUNITY SERVICES/EQUIPMENT:: None currently PRIMARY CARE PHYSICIAN:: Germania Hodge POTENTIAL DISCHARGE NEEDS:: Kitty may need short term rehab after surgery.She will follow up with her surgeon and discharge plan of care. PATIENT/FAMILY EDUCATION NEEDS:: Discharge plan, limitations, Ask Me Three TRANSPORTATION:: via ambulance to [facility] PLAN:: Kitty will be transferred to [facility] when a bed is available and will have surgery there. She will transport via ambulance coordinated by nursing supervisor veneer. CM will continue to support patient, family and discharge planning needs.
--- NOTE | 2020-02-28 14:56 | W.NUTCONSULT ---
Date of service: 02/28/20 Time of Service: 14:56 Nutritional Consult ASSESSMENT: 49 year old female admitted with tibial fracture. BMI 66 indicates severe obesity and unable to care for self at home. Following Heart healthy diet with adequate intake. Recent A1C (08/2019) 5.4% indicating non diabetes. Estimated Needs based on IBW kg x 25 kcal = 1475 kcal, 102 g protein (ABW 1 g/kg). Met with Kitty today to discuss weight loss options. She asked about weight loss surgery and I explained that she should talk to her PCP. Provided my contact info if she needs nutritional counseling prior to weight loss surgery or in general. Reviewed how to lose weight by following 1500 kcal diet. Provided written material and encouraged her to increase intake of lean protein and non starchy vegetables. NUTRITIONAL DIAGNOSIS: morbid obesity INTERVENTION: 1500 kcal diet plan MONITORING AND EVALUATION: will monitor weight, po intake and labs. Time Spent in Nutritional Counseling and Treatment: 15 min spent face to face
[2020-02-28 15:46] VITALS: BP 122/71; PULSE 94; RESP 20; TEMP 37.6; O2SAT 96
--- NOTE | 2020-02-28 16:11 | CHAPLAIN ---
Kitty was up in a chair when I visited. She was very pleasant and easily engaged in a conversation. She said she's feeling better now that her pain is controlled better.Kitty's keeping in touch with family by phone and arranging with her sister and one of her three daughters to he take care of her youngest (13 year old) daughter.
[2020-02-28 21:53] LABS: COVID-19 RT-PCR UVMMC Result Negative (Negative)
--- NOTE | 2020-02-29 08:11 | OT.INDS ---
Date of service: 02/29/20 Time of Service: 08:12 Occupational Therapy Notes Occupational Therapy Inpatient Discharge Summary Date: 02/29/20 Dates of Service: 02/28/20 for OT consult Referring Doctor:Bonilla Walsh MD OT Orders: Morbid obesity with upper extremity weakness, fx knee, IADL activity Precautions: Fall, Standard, Full This Document serves as a summary of care, no skilled OT services were provided for this documentation PATIENT PROFILE/ADMITTING DIAGNOSIS: Pt is a 49 year old female who presented to the ER on 02/27/20 after falling down the stairs resulting in a Closed fracture of left tibial plateau, Inability to ambulate due to left knee. The plan is for pt to transition [place] [facility] [place] and was admitted to Med Surg for Orthopedic consultation and assessment of ADL/IADL routines. Past Medical History- Medical History Anterior uveitis (Resolved) Bilateral in 2005 Essential hypertension (Chronic) Generalized anxiety disorder (Chronic) Hyperlipidemia (Chronic) Hypothyroidism (Chronic) Lichen sclerosus et atrophicus (Inactive) Major depressive disorder (Chronic) Obesity (Chronic) Vitiligo (Chronic) Surgical History History of section (Chronic 08/31/06) S/P dilatation and curettage (Acute 07/31/09) S/P LEEP (Acute ~1995) Status post de Quervain's release surgery (Acute 08/22/08) Left wrist Social History/Home Situation: Pt lives with her 13 year old daughter. She states that she has a step daughter who has 3 children and is limited to be able to help her if she needs help. At baseline she notes slight difficulty in performing stair and has multiple stairs to enter into their home. She is (I) with community mobility and ADLs. She has a tub shower which OT and pt discuss that use of a shower bench will increase her functional (I) with bathing routine when she does go home. Pt states that she does not feel that she will be able to return home at this time due to her inability to perform her ADLs at her baseline level of function and notes that she is not sure that she will be able to enter her home. Equipment owned/DME: None SUBJECTIVE: NT OBJECTIVE: ROM: RUE AROM WFL L UE AROM WFL STRENGTH: RUE 4/5 throughout LUE 4/5 throughout Pt is (R) hand dominant. SENSATION: Intact FUNCTIONAL MOBILITY/ADLS: Transfers with (A) per nursing- states that this is stand pivot only at this time. BATHING Sitting in chair with max (A) set up and clean up Bathing UE Max (A) back, (I) (B) UE, underarms, abdomen, eileen area in sitting position and chest. Bathing LE Max (A) (B) feet, unable to wash (B) legs due to braces. Pt is not able to perform this. OT and pt discuss use of long handled sponge and performing (B) LE bathing in the seated position. DRESSING in seated postion Dressing UE (I) don and doffing shirt, bra and hospital gown Dressing LE NT GROOMING Sitting in chair with max (A) set up (I) with brushing teeth TOILETING NT EATING Sitting in chair (I) BALANCE: Static sitting Normal Dynamic Sitting Normal Static Standing Fair Dynamic Standing Pivot transfer only ASESSMENT: Patient is a 49-year-old 4234/ referred to occupational therapy services with diagnosis of falling down the stairs resulting in a Closed fracture of left tibial plateau, Inability to ambulate due to left knee. Patient presents with clinical signs and symptoms consistent with dx, as demonstrated by the following impairment level findings: Increased pain in LE, decreased functional activity tolerance, increased BMI, decreased social supports in home, decreased performance of standing ADLS/IADLS at this time. Impairments are contributing to the following functional limitations: Impairments in ADLs/IADLs and leisure activities, decreased functional activity tolerance, decreased LE dressing, decreased LE bathing, steep stairs to enter home, Unable to perform functional mobility required for ADLs. Pt was seen for OT consult and was awaiting transfer [place] [facility] She was transferred later in the day yesterday. OT will formally discharge pt from services at this time. GOALS- NT as pt was seen for OT consult only. 1. Dressing with mod (A) and mod (I) pt will be able to don and doff socks and pants 2. Bathing seated position pt will be mod (I) with bathing routine with min vc and use of adaptive equipment. PLAN OF CARE/TREATMENT PLAN: Discharge from skilled OT services. DISCHARGE RECOMMENDATIONS Plan is for pt to be transferred [place] [facility] [place] procedure at this time. TREATMENT TIME/MINUTES/CODES N/A Olga Fitzpatrick OTR/[facility]
== END 2020-02-28 16:40 | disposition short-term general hospital (02) ==
LOC: ER 17:44 → MS 18:51
PROVIDERS: Admitting Provider Family Medicine; Emergency Provider Student in an Organized Health Care Education/Training Program; PCP Nurse Practitioner Family; Visit Provider Internal Medicine
DX: G89.11 Acute pain due to trauma (principal); S82.142A Displaced bicondylar fracture of left tibia, initial encounter for closed fracture; W10.9XXA Fall (on) (from) unspecified stairs and steps, initial encounter; R26.2 Difficulty in walking, not elsewhere classified; Z73.89 Other problems related to life management difficulty; E66.01 Morbid (severe) obesity due to excess calories; Z68.44 Body mass index [BMI] 60.0-69.9, adult; I10 Essential (primary) hypertension; F32.9 Major depressive disorder, single episode, unspecified
CPT/HCPCS: 36415; 80053; 85027; 93005; 97162; 97166; 97535; 99217; 99219; 99253; 99285; U0003; 84443; 84484; 93010; 99284; G0378; J1644; L1830

== ENCOUNTER 2020-09-04 02:22 | Outpatient (CLI) | payer OTHER, SELFPAY ==
[2020-09-06 17:12] LABS: Angiotensin Converting Enzyme <5 U/L (16 - 85)
[2020-09-09 08:54] LABS: HLA-B27 Result Negative
[2020-09-09 10:19] LABS: Lysozyme (Muramidase), P 5.9 mcg/mL (2.7 - 9.4)
[2020-09-11 13:51] LABS: TB Interpretation Negative (Negative)
== END 2020-09-04 02:42 ==
PROVIDERS: Visit Provider Optometrist
DX: H20.13 Chronic iridocyclitis, bilateral (principal)
CPT/HCPCS: 36415; 82164; 85549; 86812; 86480

== ENCOUNTER 2021-01-08 03:33 | Outpatient (CLI) | payer OTHER, SELFPAY ==
[2021-01-08 08:37] LABS: Abs Immature Grans 0.03 10^3/uL (0.0-0.06); Absolute Basophil Count 0.02 10^3/uL (0.0-0.2); Absolute Eosinophil Count 0.19 10^3/uL (0.0-0.7); Absolute Lymphocyte Count 1.04 10^3/uL (1.2-3.4); Absolute Monocyte Count 0.49 10^3/uL (0.1-0.8); Absolute Neutrophil Count 4.41 10^3/uL (1.2-6.7); Basophils % 0.3; Eosinophils % 3.1; HCT 41.4 % (36.0-46.0); HGB 12.6 g/dL (11.2-15.7); Immature Grans % 0.5; Lymphocytes % 16.8; MCH 28.4 pg (27.0-33.0); MCHC 30.4 % (32.0-36.0); MCV 93.2 fL (80-95); MPV 9.7 fL (8.0-11.0); Monocytes % 7.9; Neutrophils % 71.4; Nucleated RBC 0 %; Platelet Count 216 10^3/uL (130-400); RBC 4.44 10^6/uL (3.93-5.22); RDW 15.3 % (11.7-14.6); RDW-SD 52.3 fL; WBC 6.18 10^3/uL (4.4-10.8)
[2021-01-08 08:39] LABS: ESR 36 mm//hr (0-30)
[2021-01-08 09:19] LABS: ALT 25 U/L (14-59); AST 14 U/L (15-37); C-Reactive Protein 2.73 mg/dL (0.0-0.3)
[2021-01-08 09:30] LABS: Anion Gap 4.4 mmol/L (3-11); BUN 29 mg/dL (7-18); CO2 32.6 mmol/L (21.0-32.0); CREATININE 1.1 mg/dL (0.55-1.02); Calcium 9.2 mg/dL (8.5-10.1); Chloride 104 mmol/L (98-107); Estimated GFR 52.36 (mL/min/1.73m2); FREE T4 1.24 ng/dL (0.76-1.46); Glucose 111 mg/dL (74-106); Potassium 4.6 mmol/L (3.5-5.1); Sodium 141 mmol/L (136-145); TSH 7.31 uIU/mL (0.36-3.74)
[2021-01-08 09:44] LABS: Calculated LDL 122 mg/dL (<100); Cholesterol 189 mg/dL (<200); HDL Cholesterol 43 mg/dL (40-60); Triglyceride 120 mg/dL (<150)
[2021-01-09 14:54] LABS: ANA Interpretation Positive (Negative); ANA Titer Pattern 1:160 Speckled
[2021-01-09 15:15] LABS: ANCA Interpretation Negative (Negative)
[2021-01-09 15:18] LABS: RNP Ab, IgG 2.4 Units (<20.0); SS-A Antibody 1.6 Units (<20.0); SS-B (La) Ab, IgG 5.2 Units (<20.0); Sm (Smith) Ab, IgG 1.6 Units (<20.0)
[2021-01-10 10:41] LABS: Syphilis Total Ab w/Reflex Nonreactive (Nonreactive)
[2021-01-10 12:31] LABS: Myeloperoxidase Ab IgG <0.2 U; Proteinase 3 Ab (PR3) <0.2 U
== END 2021-01-08 03:34 | disposition home or self-care (01) ==
LOC: LBO 03:33
PROVIDERS: Internal Medicine Rheumatology; PCP Nurse Practitioner Family; Visit Provider Nurse Practitioner Family
DX: E03.9 Hypothyroidism, unspecified (principal); H20.9 Unspecified iridocyclitis
CPT/HCPCS: 36415; 80048; 80061; 85652; 86255; 83516; 84439; 84443; 84450; 84460; 85025; 86038; 86140; 86235; 86780

== ENCOUNTER 2021-12-25 19:51 | Outpatient (REF) | payer OTHER, SELFPAY ==
[2021-12-25 19:44] LABS: ALT 37 U/L (14-59); AST 28 U/L (15-37); Alkaline Phosphatase 149 U/L (46-116); Anion Gap 6.8 mmol/L (3-11); BUN 62 mg/dL (7-18); Bilirubin, Total 0.6 mg/dL (0.2-1.0); CO2 30.2 mmol/L (21.0-32.0); CREATININE 1.5 mg/dL (0.55-1.02); Calcium 9.7 mg/dL (8.5-10.1); Chloride 104 mmol/L (98-107); Estimated GFR 36.47 (mL/min/1.73m2); Glucose 87 mg/dL (74-106); NT-proBNP 127 pg/mL (<300); Potassium 5.4 mmol/L (3.5-5.1); Sodium 141 mmol/L (136-145); TSH 1.38 uIU/mL (0.36-3.74); Total Protein 8.7 g/dL (6.4-8.2)
== END 2021-12-25 19:52 | disposition home or self-care (01) ==
LOC: LBN 19:51
PROVIDERS: PCP Nurse Practitioner Family; Visit Provider Nurse Practitioner Family
DX: E03.9 Hypothyroidism, unspecified (principal); I50.9 Heart failure, unspecified
CPT/HCPCS: 80053; 83880; 84439; 84443

== ENCOUNTER 2022-01-08 02:01 | Outpatient (CLI) | payer OTHER, SELFPAY ==
--- NOTE | 2022-01-08 07:45 | DI.MRI_ITS ---
Exam(s) MR LOWER JOINT LT WO EXAM: MR LOWER JOINT LT WO CLINICAL HISTORY: Left knee pain, r/o meniscus tear, no help with PT,[id number]. TECHNIQUE: Multiplanar multisequence MRI was performed. COMPARISON: CR,XR XR TIB/FIB LT from 02/26/2020 CR,XR XR KNEE LT 4V AP,LAT,SHANNON,PAT from 02/26/2020 FINDINGS: The exam is quite limited by patient body habitus and hardware in the proximal tibia. BONES: There is no fracture or contusion pattern in portions of bone visualized. Tibia is obscured b y metallic artifact.. JOINTS: Narrowing of the patellofemoral joint and cartilage thinning. Periarticular spurring. Small joint effusion. TENDONS: Extensor mechanism: Unremarkable. Medial retinaculum: Unremarkable. Lateral retinaculum: Unremarkable. Popliteus: Obscured by artifact MUSCLES: Unremarkable. MENISCI: The menisci are obscured on most sequences by artifact. The anterior horns and bodies are n ot well seen. The medial meniscus shows a inferior surfacing horizontal tear in the posterior horn. The posterior horn of the lateral meniscus is unremarkable. SOFT TISSUES: Mild edema. LIGAMENTS: Anterior Cruciate: Not well seen but intact Posterior Cruciate: Intact Medial Collateral:Not optimally visualized. Edema near the femoral attachment. Lateral Collateral: Obscured by artifact. OTHER: IMPRESSION: Severely limited exam due to entirely artifact from hardware in the proximal tibia. Inferior surfaci ng horizontal tear of the posterior horn of the medial meniscus is demonstrated. There is also proba ble medial collateral ligament sprain. DATA REPOSITORY:
== END 2022-01-08 02:21 ==
PROVIDERS: PCP Nurse Practitioner Family; Visit Provider Nurse Practitioner Family
DX: M25.562 Pain in left knee (principal); S83.212A Bucket-handle tear of medial meniscus, current injury, left knee, initial encounter; X58.XXXA Exposure to other specified factors, initial encounter
CPT/HCPCS: 73721

== ENCOUNTER 2022-01-08 04:08 | Outpatient (CLI) | payer OTHER, SELFPAY ==
[2022-01-08 15:20] LABS: Anion Gap 9.9 mmol/L (3-11); CO2 26.1 mmol/L (21.0-32.0); Calcium 9.7 mg/dL (8.5-10.1); Chloride 102 mmol/L (98-107); Estimated GFR 12.47 (mL/min/1.73m2); Glucose 114 mg/dL (74-106); Sodium 138 mmol/L (136-145)
[2022-01-08 15:43] LABS: BUN 124 mg/dL (7-18); CREATININE 3.8 mg/dL (0.55-1.02)
[2022-01-08 15:44] LABS: Potassium 6.3 mmol/L (3.5-5.1)
== END 2022-01-08 04:09 | disposition home or self-care (01) ==
LOC: LBO 04:09
PROVIDERS: PCP Nurse Practitioner Family; Visit Provider Nurse Practitioner Family
DX: E87.5 Hyperkalemia (principal); I10 Essential (primary) hypertension
CPT/HCPCS: 36415; 80048

== ENCOUNTER 2022-01-13 04:30 | Outpatient (CLI) | payer OTHER, SELFPAY ==
[2022-01-13 13:39] LABS: Anion Gap 11.5 mmol/L (3-11); BUN 65 mg/dL (7-18); CO2 23.5 mmol/L (21.0-32.0); CREATININE 1.6 mg/dL (0.55-1.02); Calcium 9.6 mg/dL (8.5-10.1); Chloride 107 mmol/L (98-107); Estimated GFR 33.85 (mL/min/1.73m2); Glucose 108 mg/dL (74-106); Potassium 5.7 mmol/L (3.5-5.1); Sodium 142 mmol/L (136-145)
== END 2022-01-13 04:31 | disposition home or self-care (01) ==
LOC: LBO 04:31
PROVIDERS: PCP Nurse Practitioner Family; Visit Provider Nurse Practitioner Family
DX: N17.9 Acute kidney failure, unspecified (principal)
CPT/HCPCS: 36415; 80048

== ENCOUNTER 2022-01-23 02:13 | Outpatient (CLI) | payer OTHER, SELFPAY ==
[2022-01-23 14:03] LABS: Anion Gap 10.9 mmol/L (3-11); BUN 22 mg/dL (7-18); CO2 27.1 mmol/L (21.0-32.0); CREATININE 1.1 mg/dL (0.55-1.02); Calcium 8.9 mg/dL (8.5-10.1); Chloride 104 mmol/L (98-107); Estimated GFR 52.16 (mL/min/1.73m2); Glucose 85 mg/dL (74-106); Potassium 4.3 mmol/L (3.5-5.1); Sodium 142 mmol/L (136-145)
== END 2022-01-23 02:14 | disposition home or self-care (01) ==
LOC: LBO 02:13
PROVIDERS: PCP Nurse Practitioner Family; Visit Provider Nurse Practitioner Family
DX: N17.9 Acute kidney failure, unspecified (principal)
CPT/HCPCS: 36415; 80048

== ENCOUNTER 2023-02-02 17:52 | Outpatient (CLI) | payer OTHER, SELFPAY ==
[2023-02-02 17:25] LABS: Hemoglobin A1C 5.8 % (<5.7)
[2023-02-02 17:32] LABS: Anion Gap 6.6 mmol/L (3-11); BUN 25 mg/dL (7-18); CO2 32.4 mmol/L (21.0-32.0); CREATININE 1.2 mg/dL (0.55-1.02); Calcium 9.2 mg/dL (8.5-10.1); Calculated LDL 118 mg/dL (<100); Chloride 100 mmol/L (98-107); Cholesterol 189 mg/dL (<200); Estimated GFR 54.13 (mL/min/1.73m2); Glucose 109 mg/dL (74-106); HDL Cholesterol 49 mg/dL (40-60); Potassium 3.8 mmol/L (3.5-5.1); Sodium 139 mmol/L (136-145); TSH (W/Ref FT4) 6.76 uIU/mL (0.36-3.74); Triglyceride 113 mg/dL (<150)
[2023-02-02 18:00] LABS: FREE T4 1.41 ng/dL (0.76-1.46)
== END 2023-02-02 17:53 | disposition home or self-care (01) ==
LOC: LBO 17:59
PROVIDERS: PCP Nurse Practitioner Family; Visit Provider Nurse Practitioner Family
DX: I10 Essential (primary) hypertension (principal); E78.5 Hyperlipidemia, unspecified; E03.9 Hypothyroidism, unspecified; R73.09 Other abnormal glucose
CPT/HCPCS: 36415; 80048; 80061; 83036; 84439; 84443

== ENCOUNTER 2023-03-10 04:43 | Outpatient (CLI) | payer OTHER, SELFPAY ==
[2023-03-10 14:32] LABS: TSH (W/Ref FT4) 5.22 uIU/mL (0.36-3.74)
[2023-03-10 14:59] LABS: FREE T4 1.48 ng/dL (0.76-1.46)
== END 2023-03-10 04:44 | disposition home or self-care (01) ==
LOC: LBO 04:43
PROVIDERS: PCP Nurse Practitioner Family; Visit Provider Nurse Practitioner Family
DX: E03.9 Hypothyroidism, unspecified (principal)
CPT/HCPCS: 36415; 84439; 84443

== ENCOUNTER 2023-05-06 04:13 | Outpatient (CLI) | payer OTHER, SELFPAY ==
[2023-05-06 16:08] LABS: TSH (W/Ref FT4) 4.36 uIU/mL (0.36-3.74)
[2023-05-06 16:27] LABS: FREE T4 1.46 ng/dL (0.76-1.46)
== END 2023-05-06 04:14 | disposition home or self-care (01) ==
PROVIDERS: PCP Nurse Practitioner Family; Visit Provider Nurse Practitioner Family
DX: E03.9 Hypothyroidism, unspecified (principal)
CPT/HCPCS: 36415; 84439; 84443

== ENCOUNTER 2023-07-08 04:58 | Outpatient (CLI) | payer OTHER, SELFPAY ==
[2023-07-08 08:39] LABS: Anion Gap 10.4 mmol/L (3-11); BUN 62 mg/dL (7-18); CO2 24.6 mmol/L (21.0-32.0); CREATININE 1.8 mg/dL (0.55-1.02); Calcium 9.7 mg/dL (8.5-10.1); Chloride 103 mmol/L (98-107); Estimated GFR 33.27 (mL/min/1.73m2); Glucose 111 mg/dL (74-106); Potassium 4.5 mmol/L (3.5-5.1); Sodium 138 mmol/L (136-145); TSH (W/Ref FT4) 0.73 uIU/mL (0.36-3.74)
== END 2023-07-08 04:59 | disposition home or self-care (01) ==
LOC: LBO 04:58
PROVIDERS: PCP Nurse Practitioner Family; Visit Provider Nurse Practitioner Family
DX: I10 Essential (primary) hypertension (principal); E03.9 Hypothyroidism, unspecified
CPT/HCPCS: 36415; 80048; 84443

== ENCOUNTER 2023-08-19 02:29 | Outpatient (CLI) | payer OTHER, SELFPAY ==
[2023-08-19 13:52] LABS: Anion Gap 13.4 mmol/L (3-11); BUN 49 mg/dL (7-18); CO2 22.6 mmol/L (21.0-32.0); CREATININE 1.2 mg/dL (0.55-1.02); Calcium 10.1 mg/dL (8.5-10.1); Chloride 100 mmol/L (98-107); Estimated GFR 54.13 (mL/min/1.73m2); Glucose 97 mg/dL (74-106); Potassium 4.1 mmol/L (3.5-5.1); Sodium 136 mmol/L (136-145)
== END 2023-08-19 02:30 | disposition home or self-care (01) ==
LOC: LBO 02:29
PROVIDERS: PCP Nurse Practitioner Family; Visit Provider Nurse Practitioner Family
DX: N17.9 Acute kidney failure, unspecified (principal)
CPT/HCPCS: 36415; 80048

== ENCOUNTER 2023-12-15 05:06 | Outpatient (CLI) | payer OTHER, SELFPAY ==
[2023-12-15 17:05] LABS: ALT 26 U/L (14-59); AST 15 U/L (15-37); Albumin 3.6 g/dL (3.4-5.0); Alkaline Phosphatase 113 U/L (46-116); BUN 36 mg/dL (7-18); Bilirubin, Total 0.4 mg/dL (0.2-1.0); CREATININE 1.2 mg/dL (0.55-1.02); Calcium 9.4 mg/dL (8.5-10.1); Chloride 104 mmol/L (98-107); Estimated GFR 53.79 (mL/min/1.73m2); Glucose 91 mg/dL (74-106); Hemoglobin A1C 5.2 % (<5.7); Potassium 3.8 mmol/L (3.5-5.1); Sodium 140 mmol/L (136-145); TSH (W/Ref FT4) 0.71 uIU/mL (0.36-3.74); Total Protein 7.9 g/dL (6.4-8.2)
[2023-12-16 20:02] LABS: Hepatitis C Ab w Rflx HCV PCR Negative (Negative)
== END 2023-12-15 05:07 | disposition home or self-care (01) ==
LOC: LBO 05:06
PROVIDERS: PCP Nurse Practitioner Family; Visit Provider Nurse Practitioner Family
DX: E66.01 Morbid (severe) obesity due to excess calories (principal); R73.03 Prediabetes; I10 Essential (primary) hypertension; E03.9 Hypothyroidism, unspecified; Z11.59 Encounter for screening for other viral diseases
CPT/HCPCS: 36415; 80053; 86803; 83036; 84443; 84550

== ENCOUNTER → 2023-12-22 01:42 | Outpatient (CLI) | payer OTHER, SELFPAY ==
--- NOTE | 2023-12-22 09:00 | DI.MAMMO_ITS ---
Exam(s) MAMMO SCREENING EXAM: MAMMO SCREENING CLINICAL HISTORY: breast cancer screening,z12.39. TECHNIQUE: Bilateral full field digital CC and MLO mammographic images were obtained with 3D tomosyn thesis and utilizing computer aided detection (CAD). COMPARISON: Prior mammograms were reviewed. FINDINGS: There has been no significant change in the appearance and distribution of the fibroglandular tissue. There are no new spiculated masses nor malignant appearing microcalcification groups. There is no significant architectural distortion nor skin thickening-retraction. IMPRESSION: No radiographic evidence of malignancy. BI-RADS Category 1 - Negative Breast Density - Category B - Scattered areas of fibroglandular density Breast density Category C or D implies that the patient has dense breast tissue. Dense breast tissue can make it harder to find cancer on a mammogram. Dense breast tissue is also associated with an incr eased risk of breast cancer. This information about the result of the mammogram report was provided to the patient to raise their awareness. Use this report when you speak with the patient about their risks for breast cancer, which includes their family history. At that time, you may recommend additional screening tests (Ultrasoun d or MRI) as these tests may add significant information. A negative radiographic report should not delay biopsy if a dominant or clinically suspicious mass is present. Up to ten percent of cancers are not identified on mammography. A negative report may reinforce clinical impression. Adenosis and dense breasts may obscure an underlying neoplasm. False positive reports average 6 to 10%. Patient will receive a letter notifying them of these results.
== END ==
PROVIDERS: PCP Nurse Practitioner Family; Visit Provider Nurse Practitioner Family
DX: Z12.31 Encounter for screening mammogram for malignant neoplasm of breast (principal)
CPT/HCPCS: 77063; 77067

== ENCOUNTER 2024-02-11 05:32 | Outpatient (CLI) | payer OTHER, SELFPAY ==
[2024-02-11 16:53] LABS: BUN 60 mg/dL (7-18); CREATININE 1.2 mg/dL (0.55-1.02); Chloride 104 mmol/L (98-107); Estimated GFR 53.79 (mL/min/1.73m2); Glucose 90 mg/dL (74-106); Potassium 4.2 mmol/L (3.5-5.1); Sodium 139 mmol/L (136-145); Uric Acid 6.7 mg/dL (2.6-6.0)
[2024-02-11 16:58] LABS: Bilirubin Negative (Negative); Blood Negative (Negative); Clarity Clear (Clear); Glucose Negative (Negative); Ketones Negative (Negative); Leukocyte Esterase Negative (Negative); Nitrite Negative (Negative); Urobilinogen 0.2 mg/dL (Up to 0.2); pH 5.5 (5-8)
[2024-02-11 17:07] LABS: Calculated LDL 98 mg/dL (<100); Cholesterol 186 mg/dL (<200); HDL Cholesterol 55 mg/dL (40-60); Triglyceride 167 mg/dL (<150)
[2024-02-11 21:49] LABS: Microalb ug/mg Crea 6.3 ug/mg Cr
[2024-02-11 21:57] LABS: Lab Add On Test DONE
== END 2024-02-11 05:33 | disposition home or self-care (01) ==
PROVIDERS: PCP Nurse Practitioner Family; Visit Provider Nurse Practitioner Family
DX: N18.30 Chronic kidney disease, stage 3 unspecified (principal); M10.9 Gout, unspecified
CPT/HCPCS: 36415; 80048; 80061; 81003; 82043; 82570; 84550

== ENCOUNTER 2024-03-21 05:19 | Outpatient (CLI) | payer OTHER, SELFPAY ==
[2024-03-21 18:07] LABS: Anion Gap 10.3 mmol/L (3-11); BUN 40 mg/dL (7-18); CO2 26.7 mmol/L (21.0-32.0); Calcium 9.1 mg/dL (8.5-10.1); Chloride 102 mmol/L (98-107); Estimated GFR 66.95 (mL/min/1.73m2); Glucose 91 mg/dL (74-106); Potassium 4.2 mmol/L (3.5-5.1); Sodium 139 mmol/L (136-145)
== END 2024-03-21 05:20 | disposition home or self-care (01) ==
LOC: LBO 05:19
PROVIDERS: PCP Nurse Practitioner Family; Visit Provider Nurse Practitioner Family
DX: N18.30 Chronic kidney disease, stage 3 unspecified (principal)
CPT/HCPCS: 36415; 80048

== ENCOUNTER 2025-02-19 04:32 | Outpatient (CLI) | payer BC, SELFPAY ==
[2025-02-19 12:28] LABS: Abs Immature Grans 0.04 10^3/uL (0.0-0.06); Absolute Basophil Count 0.04 10^3/uL (0.0-0.2); Absolute Eosinophil Count 0.31 10^3/uL (0.0-0.7); Absolute Lymphocyte Count 1.22 10^3/uL (1.2-3.4); Absolute Monocyte Count 0.71 10^3/uL (0.1-0.8); Absolute Neutrophil Count 5.65 10^3/uL (1.2-6.7); Basophils % 0.5 %; Eosinophils % 3.9 %; HCT 37.7 % (36.0-46.0); Immature Grans % 0.5 %; Lymphocytes % 15.3 %; MCH 27.8 pg (27.0-33.0); MCHC 31.8 % (32.0-36.0); MCV 88 fL (80-95); MPV 10.1 fL (8.0-11.0); Monocytes % 8.9 %; Neutrophils % 70.9 %; Platelet Count 214 10^3/uL (130-400); RBC 4.31 10^6/uL (3.93-5.22); RDW 14.2 % (11.7-14.6); RDW-SD 45.5 fL; WBC 7.97 10^3/uL (4.4-10.8)
[2025-02-19 13:08] LABS: Hemoglobin A1C 5.1 % (<5.7)
[2025-02-19 13:22] LABS: ALT 22 U/L (14-59); AST 15 U/L (15-37); Albumin 3.9 g/dL (3.4-5.0); Alkaline Phosphatase 139 U/L (46-116); Anion Gap 7.5 mmol/L (3-11); BUN 31 mg/dL (7-18); Bilirubin, Total 0.5 mg/dL (0.2-1.0); CO2 26.5 mmol/L (21.0-32.0); CREATININE 1.1 mg/dL (0.55-1.02); Calcium 9.6 mg/dL (8.5-10.1); Chloride 105 mmol/L (98-107); Estimated GFR 59.34 (mL/min/1.73m2); Glucose 95 mg/dL (74-106); Potassium 4.7 mmol/L (3.5-5.1); Sodium 139 mmol/L (136-145); TSH (W/Ref FT4) 1.76 uIU/mL (0.36-3.74); Total Protein 8.2 g/dL (6.4-8.2)
[2025-02-20 11:55] LABS: HBs Antibody, Quant <3.1 mIU/mL (See Note); Hep B Surface Ab Negative (See Note); Hepatitis B Core Antibody Negative (Negative); Hepatitis B Surface Antigen Negative (Negative)
[2025-02-20 12:01] LABS: HIV-1/2 Ag & Ab Screen Negative (Negative)
[2025-02-20 18:57] LABS: Calculated LDL 147 mg/dL (<100); Cholesterol 227 mg/dL (<200); HDL Cholesterol 58 mg/dL (>or=50); Triglyceride 110 mg/dL (<150)
== END 2025-02-19 04:33 | disposition home or self-care (01) ==
LOC: LOS 04:32
PROVIDERS: PCP Nurse Practitioner Family; Visit Provider Nurse Practitioner Family
DX: Z00.00 Encounter for general adult medical examination without abnormal findings (principal); N18.30 Chronic kidney disease, stage 3 unspecified; I10 Essential (primary) hypertension; E03.9 Hypothyroidism, unspecified; Z11.4 Encounter for screening for human immunodeficiency virus [HIV]; Z11.59 Encounter for screening for other viral diseases
CPT/HCPCS: 36415; 80053; 80061; 86704; 86706; 87340; 87389; 83036; 84443; 85025